=== PATIENT | male | born 1950 | race Two or more races ===

== ENCOUNTER 2017-03-25 09:00 | Outpatient (CLI) | payer MEDICAID, MEDICARE | END 2017-03-25 23:59 | disposition home or self-care (01) | LOC: WOU 09:00 → EDBD 09:00 → WOU 23:59 | PROVIDERS: ATTEND Podiatrist Foot & Ankle Surgery | DX: R60.0 Localized edema (principal); E11.65 Type 2 diabetes mellitus with hyperglycemia; E11.42 Type 2 diabetes mellitus with diabetic polyneuropathy; Z79.4 Long term (current) use of insulin; B35.1 Tinea unguium; R01.1 Cardiac murmur, unspecified | CPT/HCPCS: 82962-TC; G0463 ==

== ENCOUNTER 2017-03-26 08:54 | Outpatient (CLI) | payer MEDICARE ==
[2017-03-26 09:22] LABS: BASOPHILS % (AUTO) 0.7 % (0.0-2.0); EOSINOPHILS # (AUTO) 0.2 /CMM (0.0-0.7); EOSINOPHILS % (AUTO) 4.3 % (0.0-6.0); HEMATOCRIT 34 % (39-51); HEMOGLOBIN 10.8 g/dL (13.5-17.5); LYMPHOCYTES # (AUTO) 0.7 /CMM (0.8-4.8); LYMPHOCYTES % (AUTO) 20.4 % (20.0-44.0); MEAN CORPUSCULAR HEMOGLOBIN 24 PG (26.0-33.0); MEAN CORPUSCULAR HGB CONC 32 g/dl (31.0-36.0); MEAN CORPUSCULAR VOLUME 75 fL (80-96); MONOCYTES # (AUTO) 0.4 /CMM (0.1-1.30); MONOCYTES % (AUTO) 11.5 % (2.0-12.0); NEUTROPHILS # (AUTO) 2.2 /CMM (1.8-8.9); NEUTROPHILS % (AUTO) 63.1 % (43.0-81.0); PLATELET COUNT (AUTO) 90 /CMM (150-450); RED BLOOD CELL COUNT(AUTO) 4.44 MIL/uL (4.5-6.0); WHITE BLOOD COUNT (AUTO) 3.6 K/uL (4.3-11.0)
[2017-03-26 09:37] LABS: ALBUMIN 2.6 g/dL (3.4-5.0); BILIRUBIN,TOTAL 0.7 mg/dL (0.2-1.0); CALCIUM, SERUM 7.8 mg/dL (8.5-10.1); CREATININE 0.6 mg/dL (0.6-1.3); POTASSIUM 4.5 mmol/L (3.5-5.1); TOTAL PROTEIN, SERUM 5.8 g/dL (6.4-8.2)
[2017-03-26 10:16] LABS: BAND % (MANUAL) 1 % (0.0-5.0); EOSINOPHILS % (MANUAL) 3 % (0-4); LYMPHOCYTES % (MANUAL) 21 % (16-48); MONOCYTES % (MANUAL) 5 % (0-11.0); NEUTROPHILS % (MANUAL) 70 (42-76); PLATELET ESTIMATE DECREASED
[2017-03-26 10:17] LABS: ANISOCYTOSIS 1+; HYPOCHROMASIA 1+
[2017-03-27] MEDS ORDERED: METF500T4 PO (13:24)
[2017-03-27] MEDS ORDERED: INSU100V7 SQ (13:24)
[2017-03-27] MEDS ORDERED: ASPI81TA2 PO (13:24)
[2017-03-27] MEDS ORDERED: LINA5TAB PO (13:24)
[2017-03-27] MEDS ORDERED: BENA40TA2 PO (13:24)
[2017-03-27] MEDS ORDERED: ATOR10TA PO (13:24)
== END 2017-03-26 23:59 | disposition home or self-care (01) ==
LOC: LAB 08:54
PROVIDERS: ATTEND Podiatrist Foot & Ankle Surgery
DX: R60.0 Localized edema (principal)
CPT/HCPCS: 36415; 80053-TC; 85025-TC; 85652-TC

== ENCOUNTER 2017-03-27 08:57 | Inpatient (IN) | payer MEDICARE, MEDICAID ==
[~2017-03-27] VITALS: Ht 175.3 cm; Wt 68.5 kg
--- NOTE | 2017-03-27 09:15 | NUR ---
PT SELF PRESENTS TO ED: BLOOD IN VOMIT X 3 AND STOOL SINCE AM. COMPLAINS OF N/V. AT AND TESTED PT FOR OCCULT BLOOD- POSITVE. IV ACCESS STARTED. BLOOD DRAWN FOR LABS. VSS. SAFETY AND COMFORT MEASURES PROVIDED. WILL MONITOR.
--- NOTE | 2017-03-27 09:30 | NUR ---
PT MEDICATED ORDERED.
[2017-03-27] MEDS ORDERED: PANTOPRAZOLE 40 MG VIAL ONE (09:31)
[2017-03-27] MEDS ORDERED: IV NS 0.9% 1,000 ML ONE (09:32)
[2017-03-27] MEDS ORDERED: IV SET PRIMARY PUMP SET 1 EA INFUS.SET MC ONE ×2 (09:32→17:01)
[2017-03-27 09:42] LABS: BASOPHILS % (AUTO) 0.7 % (0.0-2.0); EOSINOPHILS # (AUTO) 0.1 /CMM (0.0-0.7); EOSINOPHILS % (AUTO) 2.3 % (0.0-6.0); HEMATOCRIT 31 % (39-51); HEMOGLOBIN 10.1 g/dL (13.5-17.5); LYMPHOCYTES # (AUTO) 0.8 /CMM (0.8-4.8); MEAN CORPUSCULAR HEMOGLOBIN 25 PG (26.0-33.0); MEAN CORPUSCULAR HGB CONC 32 g/dl (31.0-36.0); MEAN CORPUSCULAR VOLUME 76 fL (80-96); MONOCYTES # (AUTO) 0.6 /CMM (0.1-1.30); MONOCYTES % (AUTO) 11.2 % (2.0-12.0); NEUTROPHILS # (AUTO) 3.5 /CMM (1.8-8.9); NEUTROPHILS % (AUTO) 69.8 % (43.0-81.0); PLATELET COUNT (AUTO) 103 /CMM (150-450); RDW COEFFICIENT OF VARIATION 16.7 (11.5-15.0)
[2017-03-27 09:53] LABS: CALCIUM, SERUM 7.8 mg/dL (8.5-10.1); CARBON DIOXIDE 27 mmol/L (21-32); CHLORIDE 109 mmol/L (98-107); CREATININE 0.7 mg/dL (0.6-1.3); GFR 113 mL/min (>60); GLUCOSE 155 mg/dL (74-106); POTASSIUM 4.6 mmol/L (3.5-5.1); SODIUM SERUM 140 mmol/L (136-145); UREA NITROGEN, BLOOD 27 mg/dL (7-18)
[2017-03-27 09:57] LABS: INR 1.09 (0.87-1.13); PROTHROMBIN TIME 11.3 SECS (9.5-12.7)
[2017-03-27 09:59] LABS: ALANINE AMINOTRANSFERASE 18 U/L (12-78); ALBUMIN 2.5 g/dL (3.4-5.0); ALKALINE PHOSPHATASE 74 U/L (46-116); ASPARTATE AMINOTRANSFERASE 19 U/L (15-37); BILIRUBIN,DIRECT 0.2 mg/dL (0.0-0.2); BILIRUBIN,TOTAL 0.7 mg/dL (0.2-1.0); LIPASE 98 U/L (73-393); TOTAL PROTEIN, SERUM 5.7 g/dL (6.4-8.2)
[2017-03-27] MEDS ORDERED: PANTOPRAZOLE 40 MG VIAL IV ONE (10:00)
[2017-03-27] MEDS ORDERED: IV NS 0.9% 1,000 ML BAG IV ONE (10:00)
[2017-03-27 10:01] LABS: TROPONIN I < 0.017 ng/mL (0.00-0.056)
--- NOTE | 2017-03-27 11:00 | NUR ---
Patient is resting comfortably in bed with eyes closed. Easily aroused. VSS
--- NOTE | 2017-03-27 12:31 | NUR ---
EPIC PAGED, CARAMEL CANDY MAKER HELPER
[2017-03-27] MEDS ORDERED: ONDANSETRON HCL/PF 4 MG/2 ML VIAL ONE (12:49)
[2017-03-27] MEDS ORDERED: ONDANSETRON HCL/PF 4 MG/2 ML VIAL IV ONE (13:00)
[2017-03-27] MEDS ORDERED: BENA40TA2 PO (13:24)
[2017-03-27] MEDS ORDERED: LINA5TAB PO (13:24)
[2017-03-27] MEDS ORDERED: ASPI81TA2 PO (13:24)
[2017-03-27] MEDS ORDERED: INSU100V7 SQ (13:24)
[2017-03-27] MEDS ORDERED: METF500T4 PO (13:24)
[2017-03-27] MEDS ORDERED: ATOR10TA PO (13:24)
[2017-03-27 13:30] VITALS: BP 132/74
--- NOTE | 2017-03-27 13:30 | NUR ---
RN ADMITTING NOTES: Rec'd report from Matt DIAZ (ER dept). Pt admitted on Tele unit room 119/1 via gurney accompanied by ER staff & . Pt not in any distress, ambulatory, A/O x3-4, Citizen Of [place] speaking, able to understand some Norwegian. Pt on room air, saturating at 95%. Skin assessment done, intact. Initial VS taken & recorded. Pt and oriented on room. Belonging list done c/o Kalli MANAGER RN. Pt has R AC G20, SL, flushed, patent & intact w/ no signs of infection/ infiltration. Dr. Faustin made aware of pt's admission w/ orders & carried out. Call light placed w/in reach. Instructed to call RN/MANAGER RN if needs help/assistance, pt verbalized understanding. Bed kept low & in locked position. Will continue to monitor.
[2017-03-27 16:00] VITALS: BP 120/73
[2017-03-27] MEDS ORDERED: Z GUARD REMEDY 2 OZ OINT TP PRN (16:00)
[2017-03-27] MEDS ORDERED: MAGNESIUM HYDROXIDE 30 ML UDC PO PRN (16:00)
[2017-03-27] MEDS ORDERED: DEXTROSE 50%-WATER 50 ML DISP.SYRIN IV PRN (16:00)
[2017-03-27] MEDS ORDERED: MAG HYDROX/AL HYDROX/SIMETH 30 ML UDC PO PRN (16:00)
[2017-03-27] MEDS ORDERED: ACETAMINOPHEN 325 MG TABLET PO PRN (16:00)
[2017-03-27] MEDS ORDERED: ZOLPIDEM TARTRATE 5 MG TABLET PO PRN (16:00)
[2017-03-27] MEDS: IV D5W 1,000 ML IV PRN (17:28)
[2017-03-27] MEDS: BLOOD SUGAR DIAGNOSTIC 1 EACH STRIP IN SCH ×2 (17:28→21:24)
[2017-03-27] MEDS: INSULIN REGULAR, HUMAN 100 UNIT/ML 3 ML VIAL SQ PRN (17:37)
--- NOTE | 2017-03-27 19:15 | NUR ---
RN INITIAL NOTES RECEIVED PATIENT IN BED, AWAKE AND ALERT AND ORIENTED. PATIENT ON ROOM AIR, NO RESPIRATORY DISTRESS. SR ON TELE WITH HR OF 98. PATIENT DENIES ANY PAIN AND DISCOMFORT. NO DISTRESS. PATIENT DENIES ANY N/V. PATIENT REPORTS NO EPISODE OF MELENA SINCE PRIOR TO ADMITTANCE TO ER. WILL MONITOR. R AC G20, FLUSHED AND PATENT, IVF OF D5W INFUSING WELL AT 75CC/HR. PATIENT'S NEEDS ANTICIPATED AND MET. SAFETY AND COMFORT ENSURED. BED IN LOW AND LOCKED POSITION. CALL LIGHT IN REACH. PATIENT'S DAUGHTER AT BEDSIDE. WILL MONITOR.
--- NOTE | 2017-03-27 19:55 | NUR ---
RN CLOSING NOTES: No acute changes noted w/in shift. Pt resting comfortably, no c/o pain, no bleeding noted. Needs attended. Call light placed w/in reach. Bed kept low & in locked position. Endorsed to PM RN for IZABELA.
[2017-03-27 20:00] VITALS: BP 132/75
[2017-03-27] MEDS: INSULIN DETEMIR 100 UNIT/ML CARTRIDGE SQ SCH (21:25)
[2017-03-28] VITALS (7 sets, daily range): BP systolic 97–124; BP diastolic 57–72
--- NOTE | 2017-03-28 06:49 | NUR ---
RN CLOSING NOTES PATIENT WITH NO ACUTE DISTRESS OBSERVED OVERNIGHT. PATIENT WITH NO EPISODE OF MELENA, NO N/V. IVF INFUSING WELL ORDERED ON PATIENT'S R AC, NO SIGNS OF INFILTRATION. PATIENT'S NEEDS ANTICIPATED AND MET. SAFETY AND COMFORT ENSURED. BED IN LOW AND LOCKED POSITION. CALL LIGHT IN REACH. WILL ENDORSE ACCORDINGLY FOR CONTINUITY OF CARE.
[2017-03-28] MEDS: PANTOPRAZOLE 40 MG TABLET.DR PO SCH (06:55)
[2017-03-28] MEDS: BLOOD SUGAR DIAGNOSTIC 1 EACH STRIP IN SCH ×4 (06:55→21:13)
[2017-03-28] MEDS: IV D5W 1,000 ML IV PRN ×2 (06:55→23:44)
[2017-03-28] MEDS: INSULIN REGULAR, HUMAN 100 UNIT/ML 3 ML VIAL SQ PRN ×3 (06:56→21:21)
--- NOTE | 2017-03-28 07:00 | NUR ---
RN NOTES RECEIVED PATIENT ON BED, A/Ox3. RESPIRATION EVEN AND UNLABORED, SR ON TELE WITH HR IN 70'S. NO SOB NOTED, PATIENT DENIES ANY PAIN AND DISCOMFORT. R AC G20 SITE CDI, IVF OF D5W INFUSING WELL AT 75CC/HR. SR UP x2, CALL LIGHT WITHIN EASY REACH , SAFETY AND COMFORT ENSURED. BED IN LOW AND LOCKED POSITION. SUPPORTIVE FAMILY AT THE BEDSIDE, WILL CONTINUE TO MONITOR PT CLOSELY AND NOTIFY MD FOR ANY SIGNIFICANT CHANGES .
[2017-03-28 07:35] LABS: BASOPHILS % (AUTO) 0.5 % (0.0-2.0); EOSINOPHILS # (AUTO) 0.2 /CMM (0.0-0.7); EOSINOPHILS % (AUTO) 5.3 % (0.0-6.0); HEMATOCRIT 25 % (39-51); HEMOGLOBIN 8.1 g/dL (13.5-17.5); LYMPHOCYTES # (AUTO) 0.8 /CMM (0.8-4.8); LYMPHOCYTES % (AUTO) 21.7 % (20.0-44.0); MEAN CORPUSCULAR HEMOGLOBIN 25 PG (26.0-33.0); MEAN CORPUSCULAR HGB CONC 33 g/dl (31.0-36.0); MEAN CORPUSCULAR VOLUME 76 fL (80-96); MONOCYTES # (AUTO) 0.4 /CMM (0.1-1.30); NEUTROPHILS # (AUTO) 2.3 /CMM (1.8-8.9); NEUTROPHILS % (AUTO) 61.5 % (43.0-81.0); PLATELET COUNT (AUTO) 90 /CMM (150-450); RDW COEFFICIENT OF VARIATION 17.7 (11.5-15.0); RED BLOOD CELL COUNT(AUTO) 3.26 MIL/uL (4.5-6.0); WHITE BLOOD COUNT (AUTO) 3.8 K/uL (4.3-11.0)
[2017-03-28 07:45] LABS: CALCIUM, SERUM 7.3 mg/dL (8.5-10.1); CREATININE 0.8 mg/dL (0.6-1.3); MAGNESIUM 1.6 mg/dL (1.8-2.4); PHOSPHORUS 3.5 mg/dL (2.5-4.9); POTASSIUM 3.8 mmol/L (3.5-5.1)
[2017-03-28] MEDS: ATORVASTATIN 10 MG TABLET PO SCH (08:29)
[2017-03-28] MEDS: BENAZEPRIL HCL 20 MG TABLET PO SCH (08:30)
--- NOTE | 2017-03-28 12:00 | NUR ---
RN NOTES PT AT REST , NO DISTRESS NOTED, CONTINUE TO MONITOR .
[2017-03-28 12:53] LABS: ANISOCYTOSIS 1+; EOSINOPHILS % (MANUAL) 1 % (0-4); HYPOCHROMASIA 1+; LYMPHOCYTES % (MANUAL) 23 % (16-48); MONOCYTES % (MANUAL) 8 % (0-11.0); NEUTROPHILS % (MANUAL) 68 (42-76); PLATELET ESTIMATE DECREASED
[2017-03-28] MEDS ORDERED: SECONDARY IV SET 1 EA INFUS.SET MC ONE (12:59)
[2017-03-28] MEDS: Magnesium 1GM/D5W 100ML PREMIX 100 ML IV SCH ×2 (13:05→14:21)
--- NOTE | 2017-03-28 18:53 | NUR ---
RN NOTES NO ACTIVE BLEEDING NOTED AT THIS TIME ,VSS STABLE , D5 W AT 75CC/HR RUNNING VIA R AC IV SITE, NO SIGNIFICANT CHANGES NOTED ON THIS SHIFT .
--- NOTE | 2017-03-28 19:30 | NUR ---
RN NOTES PT'S FAMILY WANTS TO SEE DR SHARMA . DR OLIVERA PAGED AND NOTIFIED, NEW ORDER GIVEN .
[2017-03-28] MEDS: INSULIN DETEMIR 100 UNIT/ML CARTRIDGE SQ SCH (21:20)
[2017-03-29] VITALS (9 sets, daily range): BP systolic 93–141; BP diastolic 57–79
[2017-03-29] MEDS: BLOOD SUGAR DIAGNOSTIC 1 EACH STRIP IN SCH ×4 (06:12→21:26)
[2017-03-29 06:38] LABS: BASOPHILS % (AUTO) 0.7 % (0.0-2.0); EOSINOPHILS # (AUTO) 0.2 /CMM (0.0-0.7); HEMATOCRIT 24 % (39-51); HEMOGLOBIN 7.9 g/dL (13.5-17.5); LYMPHOCYTES # (AUTO) 0.8 /CMM (0.8-4.8); LYMPHOCYTES % (AUTO) 23.1 % (20.0-44.0); MEAN CORPUSCULAR HEMOGLOBIN 25 PG (26.0-33.0); MEAN CORPUSCULAR HGB CONC 32 g/dl (31.0-36.0); MEAN CORPUSCULAR VOLUME 76 fL (80-96); MONOCYTES # (AUTO) 0.4 /CMM (0.1-1.30); MONOCYTES % (AUTO) 12.9 % (2.0-12.0); NEUTROPHILS # (AUTO) 1.9 /CMM (1.8-8.9); NEUTROPHILS % (AUTO) 57.3 % (43.0-81.0); PLATELET COUNT (AUTO) 81 /CMM (150-450); RDW COEFFICIENT OF VARIATION 17.7 (11.5-15.0); RED BLOOD CELL COUNT(AUTO) 3.21 MIL/uL (4.5-6.0); WHITE BLOOD COUNT (AUTO) 3.4 K/uL (4.3-11.0)
[2017-03-29 06:46] LABS: INR 1.06 (0.87-1.13); PROTHROMBIN TIME 11.4 SECS (9.5-12.7)
--- NOTE | 2017-03-29 06:56 | NUR ---
PT KEPT NPO OVERNIGHT FOR EGD TODAY @ 1300 ,IV INFUSING D5W @75 CC. CONSENT SIGNED.NO BM ,NO NAUSEA,NO VOMITING .VSS,AFEBRILE,ALL NEEDS ATTENDED,SINUS RHYTHM ON MONITOR.
[2017-03-29 07:07] LABS: ALBUMIN 2.1 g/dL (3.4-5.0); BILIRUBIN,TOTAL 0.5 mg/dL (0.2-1.0); CALCIUM, SERUM 7.5 mg/dL (8.5-10.1); CREATININE 0.7 mg/dL (0.6-1.3); MAGNESIUM 1.6 mg/dL (1.8-2.4); PHOSPHORUS 4.2 mg/dL (2.5-4.9)
[2017-03-29 07:12] LABS: ANISOCYTOSIS 2+; BAND % (MANUAL) 2 % (0.0-5.0); EOSINOPHILS % (MANUAL) 6 % (0-4); HYPOCHROMASIA 1+; LYMPHOCYTES % (MANUAL) 27 % (16-48); MONOCYTES % (MANUAL) 15 % (0-11.0); NEUTROPHILS % (MANUAL) 50 (42-76); PLATELET ESTIMATE DECREASED
[2017-03-29 07:13] LABS: OVALOCYTES FEW
--- NOTE | 2017-03-29 07:20 | NUR ---
RN INITIAL NOTE RECEIVED PT FROM PM NURSE. PT A/O X4. TELE SR 80'S. PT ON RA NO C/O OF SOB SPO2 96%. IV RAC #20G DSW @75 ML/HR PATENT FLUSHED AND INTACT. PAIN 0/10. PT NPO WILL HAVE EGD THIS AFTERNOON. WILL CONTINUE TO MONITOR CLOSELY. ALL SAFETY MEASURES IN PLACE.
[2017-03-29] MEDS: PANTOPRAZOLE 40 MG TABLET.DR PO SCH (07:30)
[2017-03-29] MEDS: ATORVASTATIN 10 MG TABLET PO SCH (09:00)
[2017-03-29] MEDS: BENAZEPRIL HCL 20 MG TABLET PO SCH (09:00)
[2017-03-29] MEDS: Magnesium 1GM/D5W 100ML PREMIX 100 ML IV SCH ×2 (13:05→15:26)
--- NOTE | 2017-03-29 13:33 | NUR ---
RN NOTE PT TAKEN TO EGD IV DISCONNECTED. PT STABLE.
[2017-03-29] MEDS ORDERED: SIMETHICONE SUSP 40 MG/0.6 ML BOTTLE ONE (13:56)
[2017-03-29] MEDS ORDERED: OCTREOTIDE 1,250 MCG in IV NS 0.9% 247.5 ML IV PRN (14:30)
[2017-03-29] MEDS ORDERED: SECONDARY IV SET 1 EA INFUS.SET MC ONE (14:40)
[2017-03-29] MEDS ORDERED: IV SET PRIMARY PUMP SET 1 EA INFUS.SET MC ONE (14:40)
--- NOTE | 2017-03-29 14:40 | NUR ---
RN NOTE PT RETURNED FROM EGD. PT NAUSEATED AND VOMITING. ZOFRAN GIVEN B.P 147/73 R18 T 97.7 SPO2 96% ON RA NO C/O OF SOB. PT C/O ABD PAIN. IV SANDOSTATIN STARTED STAT 10ML/HR CALL PHARMACY TO VERIFY DOSAGE.
[2017-03-29] MEDS ORDERED: IV NS 0.9% 250 ML IV ONE (14:41)
[2017-03-29] MEDS: ONDANSETRON HCL/PF 4 MG/2 ML VIAL IVP PRN ×2 (14:47→22:40)
[2017-03-29] MEDS: OCTREOTIDE 1,250 MCG in IV NS 0.9% 247.5 ML IV PRN ×3 (14:48→16:19)
[2017-03-29] MEDS ORDERED: ANESTHESIA TRAY IN PYXIS 1 EA TRAY MC ONE (15:29)
[2017-03-29 16:00] LABS: BASOPHILS % (AUTO) 0.3 % (0.0-2.0); EOSINOPHILS # (AUTO) 0.3 /CMM (0.0-0.7); EOSINOPHILS % (AUTO) 4.4 % (0.0-6.0); HEMATOCRIT 28 % (39-51); LYMPHOCYTES # (AUTO) 1.1 /CMM (0.8-4.8); LYMPHOCYTES % (AUTO) 18.3 % (20.0-44.0); MEAN CORPUSCULAR HEMOGLOBIN 24 PG (26.0-33.0); MEAN CORPUSCULAR HGB CONC 32 g/dl (31.0-36.0); MEAN CORPUSCULAR VOLUME 75 fL (80-96); MONOCYTES # (AUTO) 0.7 /CMM (0.1-1.30); MONOCYTES % (AUTO) 11.6 % (2.0-12.0); NEUTROPHILS # (AUTO) 3.9 /CMM (1.8-8.9); NEUTROPHILS % (AUTO) 65.4 % (43.0-81.0); PLATELET COUNT (AUTO) 105 /CMM (150-450); RDW COEFFICIENT OF VARIATION 17.9 (11.5-15.0); RED BLOOD CELL COUNT(AUTO) 3.73 MIL/uL (4.5-6.0)
--- NOTE | 2017-03-29 18:30 | NUR ---
RN NOTE CALLED DR. ARIAS ORDERED CLEAR LIQUID DIET, REPORTED HGB 7.9 NOW 9.0 ORDER CBC IN 4 HOURS.
--- NOTE | 2017-03-29 18:30 | NUR ---
LOAN MANAGER NOTE PT DC HOME WITH SON VIA PRIVATE CAR.IV AND NAME BAND REMOVED. PT STABLE. ALL DC INSTRUCTIONS GIVEN TO SON. ALL QUESTIONS ANSWERED BELONGING LIST SIGNED PHOTOS TAKEN AND PUT IN CHART. PT CLEAN AND DRY. ALL MEDICATIONS CARRIED OUT. Addendum: 03/29/17 at 2017 by STEWART DENNY RN DC NOTE NOT FOR PT ABOVE.
--- NOTE | 2017-03-29 19:30 | NUR ---
RN INITIAL NOTES PT IS IN BED, FAMILY IN BEDSIDE, A/O X3, GEORGIAN SPEAKING, ALL LUNG NI CTA, NO COMPLAINTS OF N/V, PAIN OF 8 AROUND THE ABDOMEN AREA, WILL PROVIDE PAINS ORDER. ON RA, TOLERATING IT WELL, L FOREARM IV SITE FLUSHED AND PATENT. SIDERAILS UP BED LOCKED AND IN LOWEST POSITION, CALL LIGHTS WITHIN REACH.
--- NOTE | 2017-03-29 19:59 | NUR ---
ALL [facility] MEDS CLEARED FOR PT SAFETY
[2017-03-29] MEDS: HYDROCODONE/APAP 5/325MG 1 EACH TABLET PO PRN (20:09)
--- NOTE | 2017-03-29 20:10 | NUR ---
RN CLOSING NOTE PT A/O X4. TELE SR 80'S. PT ON RA NO C/O OF SOB SPO2 96%. IV L WRIST#20G SANDOSTATIN @ 10ML/HR PATENT FLUSHED AND INTACT. PT HAD EGD DONE PT STABLE. REPORT GIVEN TO PM NURSE FOR IZABELA. ALL MEDICATIONS GIVEN IN PM. ALL SAFETY MEASURES IN PLACE. V/S WNL FOR PT.
[2017-03-29] MEDS: INSULIN DETEMIR 100 UNIT/ML CARTRIDGE SQ SCH (21:36)
[2017-03-29] MEDS: INSULIN REGULAR, HUMAN 100 UNIT/ML 3 ML VIAL SQ PRN (23:29)
[2017-03-30] VITALS (7 sets, daily range): BP systolic 101–136; BP diastolic 59–82
[2017-03-30] MEDS: ONDANSETRON HCL/PF 4 MG/2 ML VIAL IVP PRN ×2 (06:37→16:29)
[2017-03-30] MEDS: BLOOD SUGAR DIAGNOSTIC 1 EACH STRIP IN SCH ×4 (06:38→23:07)
[2017-03-30 07:14] LABS: BASOPHILS % (AUTO) 0.3 % (0.0-2.0); EOSINOPHILS # (AUTO) 0.1 /CMM (0.0-0.7); HEMATOCRIT 28 % (39-51); HEMOGLOBIN 8.9 g/dL (13.5-17.5); LYMPHOCYTES # (AUTO) 0.7 /CMM (0.8-4.8); MEAN CORPUSCULAR HEMOGLOBIN 24 PG (26.0-33.0); MEAN CORPUSCULAR HGB CONC 32 g/dl (31.0-36.0); MEAN CORPUSCULAR VOLUME 76 fL (80-96); MONOCYTES # (AUTO) 0.4 /CMM (0.1-1.30); MONOCYTES % (AUTO) 7.4 % (2.0-12.0); NEUTROPHILS # (AUTO) 4.8 /CMM (1.8-8.9); NEUTROPHILS % (AUTO) 79.3 % (43.0-81.0); PLATELET COUNT (AUTO) 97 /CMM (150-450); RDW COEFFICIENT OF VARIATION 17.7 (11.5-15.0)
--- NOTE | 2017-03-30 07:27 | NUR ---
INTERNAL AUDIT MANAGER INITIAL NOTES NO SIGNIFICANT CHANGES OVERNIGHT, TOLERATED ROOM AIR AT SAT 95%, PT HAD EPISODES 0F NAUSEA/VOMITING X3, STILL ON CLEAR LIQUID DIET, ASPIRATION PRECAUTION, AND ZOFRAN GIVEN ORDERED. NO ACTIVE BLEEDING NOTED, AM CBC LABS ORDERED. IV SITES IS PATENT, NO S/SX OF INFECTION/INFILTRATION NOTED. BED IS LOCKED AND IN LOWEST POSITION, CALL LIGHT WITHIN REACH. ENDORSED TO AM NURSE FOR CONTINUATION OF CARE. Addendum: 03/30/17 at 2242 by MAGDALENA STEINER RN INTERNAL AUDIT MANAGER CLOSING NOTES
[2017-03-30 07:29] LABS: CALCIUM, SERUM 7.5 mg/dL (8.5-10.1); CREATININE 0.7 mg/dL (0.6-1.3); MAGNESIUM 1.8 mg/dL (1.8-2.4); POTASSIUM 4.3 mmol/L (3.5-5.1)
--- NOTE | 2017-03-30 07:30 | NUR ---
RN INITIAL NOTE RECEIVED PT FROM MAGDALENA PM NURSE. PT A/O X4 TELUGU SPEAKING. PT ON RA NO C/O OF SOB IV L HAND#20G PATENT FLUSHED AND INTACT. PAIN 0/10 SOME ABD DISCOMFORT BUT NO PAIN. NAUSEATED EARLIER THIS MORNING ZOFRAN GIVEN @ 0700. WILL CONTINUE TO MONITOR CLOSELY. ALL SAFETY MEASURES IN PLACE.
[2017-03-30] MEDS: BENAZEPRIL HCL 20 MG TABLET PO SCH (08:13)
[2017-03-30] MEDS: ATORVASTATIN 10 MG TABLET PO SCH (08:13)
[2017-03-30] MEDS: PANTOPRAZOLE 40 MG TABLET.DR PO SCH (08:14)
[2017-03-30 08:31] LABS: ANISOCYTOSIS 1+; BAND % (MANUAL) 2 % (0.0-5.0); EOSINOPHILS % (MANUAL) 3 % (0-4); HYPOCHROMASIA 1+; LYMPHOCYTES % (MANUAL) 8 % (16-48); MONOCYTES % (MANUAL) 1 % (0-11.0); NEUTROPHILS % (MANUAL) 86 (42-76); PLATELET ESTIMATE DECREASED
[2017-03-30] MEDS: INSULIN REGULAR, HUMAN 100 UNIT/ML 3 ML VIAL SQ PRN (12:30)
--- NOTE | 2017-03-30 16:55 | NUR ---
RN NOTE REPORT GIVEN TO HARDEEP DIAZ FOR IZABELA. PT A/O X4 JAMAICAN SPEAKING. PT ON RA NO C/O OF SOB IV L HAND#20G PATENT FLUSHED AND INTACT SANDOSTATIN CONTINUALLY RUNNING 10ML/HR. PAIN 0/10 SOME ABD , VOMITED X1 ZOFRAN GIEN. ALL SAFETY MEASURES IN PLACE.
--- NOTE | 2017-03-30 17:00 | NUR ---
MS RN NOTES RECEIVED PT FROM STEWART IN STABLE CONDITION. A/O X4. NO COMPLAINTS OF NAUSEA OR VOMITING AT THIS TIME. WILL CONTINUE TO MONITOR.
[2017-03-30] MEDS: OCTREOTIDE 1,250 MCG in IV NS 0.9% 247.5 ML IV PRN (17:42)
--- NOTE | 2017-03-30 18:55 | NUR ---
MS RN CLOSING NOTES PT. IN STABLE CONDITION, RESTING IN BED. A/O X4 NORWEGIAN SPEAKING. NO COMPLAINTS OF NAUSEA AT THIS TIME. IV ON LEFT HAND 20G PATENT PATENT AND INTACT INFUSING SANDOSTATIN @ 10ML/HR. PT. TOLERATING INFUSION WELL. ALL NEEDS MET AND ORDERS CARRIED OUT ACCORDINGLY. ALL SAFETY MEASURES IN PLACE. BED IN LOW LOCKED POSITION, SIDE RAILS UP X2, CALL LIGHT WITHIN REACH. WILL ENDORSE CONSTANTIN NIGHTSHIFT NURSE FOR IZABELA
--- NOTE | 2017-03-30 19:35 | NUR ---
RN INITIAL NOTES PT IS IN BED RESTING COMFORTABLY, A/O X3 CROATIAN SPEAKING. NO SIGN OF ACUTE DISTRESS NOTED, NO COMPLAINS OF N/V, DENIES PAIN, AT BEDSIDE. ON ROOM AIR, TOLERATING IT WELL, ON IV DRIP AND IV SITE NO S/SX OF INFECTION. SIDERAILS UP, BED LOCKED AND IN LOWEST POSITION, CALL LIGHT WITHIN REACH.
[2017-03-30] MEDS: INSULIN DETEMIR 100 UNIT/ML CARTRIDGE SQ SCH (23:14)
[2017-03-30] MEDS: HYDROCODONE/APAP 5/325MG 1 EACH TABLET PO PRN (23:15)
[2017-03-31] VITALS: BP 117/60
[2017-03-31 04:00] VITALS: BP 117/60
[2017-03-31 04:19] VITALS: BP 100/72
[2017-03-31] MEDS: BLOOD SUGAR DIAGNOSTIC 1 EACH STRIP IN SCH ×2 (06:39→12:08)
[2017-03-31 06:45] LABS: BASOPHILS % (AUTO) 0.4 % (0.0-2.0); EOSINOPHILS # (AUTO) 0.2 /CMM (0.0-0.7); EOSINOPHILS % (AUTO) 4.3 % (0.0-6.0); HEMATOCRIT 26 % (39-51); HEMOGLOBIN 8.5 g/dL (13.5-17.5); LYMPHOCYTES # (AUTO) 1.6 /CMM (0.8-4.8); MEAN CORPUSCULAR HEMOGLOBIN 25 PG (26.0-33.0); MEAN CORPUSCULAR HGB CONC 32 g/dl (31.0-36.0); MEAN CORPUSCULAR VOLUME 76 fL (80-96); MONOCYTES # (AUTO) 0.8 /CMM (0.1-1.30); MONOCYTES % (AUTO) 13.8 % (2.0-12.0); NEUTROPHILS % (AUTO) 52.5 % (43.0-81.0); PLATELET COUNT (AUTO) 103 /CMM (150-450); RDW COEFFICIENT OF VARIATION 17.9 (11.5-15.0); RED BLOOD CELL COUNT(AUTO) 3.46 MIL/uL (4.5-6.0); WHITE BLOOD COUNT (AUTO) 5.6 K/uL (4.3-11.0)
[2017-03-31 06:56] LABS: CALCIUM, SERUM 7.2 mg/dL (8.5-10.1); CREATININE 0.7 mg/dL (0.6-1.3); MAGNESIUM 1.7 mg/dL (1.8-2.4)
--- NOTE | 2017-03-31 07:15 | NUR ---
PHARMACY SALESPERSON CLOSING NOTES NO SIGNIFICANT CHANGES OVERNIGHT, ON ROOM AIR TOLERATING IT WELL, PT HAD EPISODES 0F N/V, STILL ON NA RESTRICTION DIET, ASPIRATION PRECAUTION, DENIES PAIN. NO ACTIVE BLEEDING NOTED, IV SITES IS PATENT, SANDOSTATIN IV DRIP RUNNING, NO S/SX OF INFECTION/INFILTRATION NOTED. BED IS LOCKED AND IN LOWEST POSITION, CALL LIGHT WITHIN REACH. ENDORSED TO AM NURSE FOR CONTINUATION OF CARE.
--- NOTE | 2017-03-31 07:18 | NUR ---
MS/RN AM NOTES RECEIVED PATIENT IN BED, AWAKE, ALERT, NO SOB, NO DISTRESS, ON RA, TOLERATING WELL, O2 SATURATION 93%, TOLERATING WELL. DENIES PAIN. IV LINE INTACT ON LEFT HAND WITH SANDOSTATIN DRIP 10 CC/H. BED IN LOW POSITION, 2 SR UP FOR SAFETY. WITH CALL LIGHT WITHIN EASY REACH. WILL CONTINUE TO MONITOR ACCORDINGLY.
[2017-03-31 08:00] VITALS: BP 120/70
[2017-03-31] MEDS: PANTOPRAZOLE 40 MG TABLET.DR PO SCH (09:15)
[2017-03-31] MEDS: BENAZEPRIL HCL 20 MG TABLET PO SCH (09:16)
[2017-03-31] MEDS: ATORVASTATIN 10 MG TABLET PO SCH (09:16)
[2017-03-31] MEDS ORDERED: SECONDARY IV SET 1 EA INFUS.SET MC ONE (11:35)
[2017-03-31 12:00] VITALS: BP 124/73
[2017-03-31] MEDS ORDERED: IV SET PRIMARY PUMP SET 1 EA INFUS.SET MC ONE (12:00)
[2017-03-31] MEDS: Magnesium 1GM/D5W 100ML PREMIX 100 ML IV SCH ×2 (12:01→13:25)
[2017-03-31] MEDS: INSULIN REGULAR, HUMAN 100 UNIT/ML 3 ML VIAL SQ PRN (12:13)
--- NOTE | 2017-03-31 15:00 | NUR ---
RN NOTES DR. ALVARADO VISITED, EXAMINED PATIENT, WITH ORDER TO D/C HOME. EXPLAINED POST DISCHARGE CARE TO THE PATIENT, WITH TOTAL RESTRICTION OF ALCOHOL CONSUMPTION, AND IMPORTANCE OF PROTONIX USE BID TO PREVENT STOMACH ULCERS. INFORMATION DELIVERED TO THE PATIENT THROUGH STATIONARY ENGINEER REFRIGERATION NURSE, PATIENT VERBALIZED UNDERSTANDING, ANSWERED TO ALL QUESTIONS. INSTRUCTED TO F/U WITH DR. SHARMA WITHIN A WEEK FOR F/U CARE, ADDRESS AND PHONE NUMBER GIVEN.
--- NOTE | 2017-03-31 16:45 | NUR ---
MS/APPLICATIONS PROGRAMMER ANALYST NOTES PATIENT DISCHARGED HOME WITH SON AND IN STABLE CONDITION. VITAL SIGNS BP-103/65, P-75, R-18, T-98.3, 02-97% RA. DISCHARGE CARE INSTRUCTION PROVIDED, ENCOURAGED TO F/U WITH PRIMARY PHYSICIAN AND DR. SHARMA WITHIN A WEEK, FOR FOLLOW UP, VERBALIZED UNDERSTANDING. LEFT WITH ALL BELONGINGS. VALUABLE SENT HOME BY PATIENT WITH HIS FAMILY COUPLE DAYS AGO. WALKED OUT FROM THE HOSPITAL WITH SWEAT BAND SEWER HELP AND FAMILY IN STABLE CONDITION
== END 2017-03-31 16:47 | disposition home or self-care (01) | DRG 378 ==
LOC: ER 08:59 → TELE1 12:58 → MEDSG1 03-30 16:57
PROVIDERS: ADMIT Internal Medicine; ATTEND Internal Medicine
PROC: 06L34CZ Occlusion of Esophageal Vein with Extraluminal Device, Percutaneous Endoscopic Approach (ICD-10-PCS; principal; 2017-03-29 14:30)
DX: K92.2 Gastrointestinal hemorrhage, unspecified (principal); E44.0 Moderate protein-calorie malnutrition; D62 Acute posthemorrhagic anemia; K76.6 Portal hypertension; J98.11 Atelectasis; E78.5 Hyperlipidemia, unspecified; K92.0 Hematemesis; I11.9 Hypertensive heart disease without heart failure; E11.65 Type 2 diabetes mellitus with hyperglycemia; Z79.84 Long term (current) use of oral hypoglycemic drugs; K21.9 Gastro-esophageal reflux disease without esophagitis; Z87.891 Personal history of nicotine dependence; D50.9 Iron deficiency anemia, unspecified; Z68.22 Body mass index [BMI] 22.0-22.9, adult; I85.01 Esophageal varices with bleeding; F10.20 Alcohol dependence, uncomplicated; R16.2 Hepatomegaly with splenomegaly, not elsewhere classified; E83.42 Hypomagnesemia
CPT/HCPCS: 36415; 71010-TC; 80048-TC; 80053-TC; 80061-TC; 80076-TC; 82378; 82728-TC; 82962-TC; 83540-TC; 83690-TC; 83735-TC; 84100-TC; 84484-TC; 85025-TC; 85610-TC; 85730-TC; 86850-TC; 87081-TC; 93307-TC; 93976-TC; 94799-TC; A4606; C9113; J1815; J2354; J2405; J2704; J3475; J7030; J7050; J7070; Z7610

== ENCOUNTER 2017-04-08 08:40 | Outpatient (CLI) | payer MEDICARE, MEDICAID ==
[~2017-04-08 08:40] MED LIST: ASPI81TA2 PO; ATOR10TA PO; BENA40TA2 PO; INSU100V7 SQ; LINA5TAB PO; METF500T4 PO
== END 2017-04-08 23:59 | disposition home or self-care (01) ==
LOC: WOU 08:40
PROVIDERS: ATTEND Podiatrist Foot & Ankle Surgery
DX: I70.203 Unspecified atherosclerosis of native arteries of extremities, bilateral legs (principal); R60.0 Localized edema
CPT/HCPCS: 93970-TC

== ENCOUNTER 2017-04-09 08:24 | Outpatient (CLI) | payer MEDICARE, MEDICAID | END 2017-04-09 23:59 | disposition home or self-care (01) | LOC: WOU 08:24 | PROVIDERS: ATTEND Podiatrist Foot & Ankle Surgery | DX: E11.51 Type 2 diabetes mellitus with diabetic peripheral angiopathy without gangrene (principal); E11.65 Type 2 diabetes mellitus with hyperglycemia; Z79.4 Long term (current) use of insulin; B35.1 Tinea unguium | CPT/HCPCS: G0463 ==

== ENCOUNTER 2017-10-07 13:12 | Outpatient (CLI) | payer MEDICARE, OTHER | END 2017-10-07 23:59 | disposition home or self-care (01) | LOC: WOU 13:12 | PROVIDERS: ATTEND Podiatrist Foot & Ankle Surgery | DX: I70.203 Unspecified atherosclerosis of native arteries of extremities, bilateral legs (principal); I87.2 Venous insufficiency (chronic) (peripheral); R60.0 Localized edema ==

== ENCOUNTER 2017-10-08 07:50 | Outpatient (CLI) | payer MEDICARE, OTHER | END 2017-10-08 23:59 | disposition home or self-care (01) | LOC: WOU 07:50 | PROVIDERS: ATTEND Podiatrist Foot & Ankle Surgery | DX: E11.51 Type 2 diabetes mellitus with diabetic peripheral angiopathy without gangrene (principal); I10 Essential (primary) hypertension; L60.0 Ingrowing nail; R60.0 Localized edema; E11.65 Type 2 diabetes mellitus with hyperglycemia; Z79.4 Long term (current) use of insulin | CPT/HCPCS: 11730 ==

== ENCOUNTER 2017-10-09 08:03 | Outpatient (CLI) | payer MEDICARE, MEDICAID ==
[2017-10-09 09:43] LABS: BASOPHILS % (AUTO) 0.6 % (0.0-2.0); EOSINOPHILS # (AUTO) 0.1 /CMM (0.0-0.7); EOSINOPHILS % (AUTO) 3.6 % (0.0-6.0); HEMATOCRIT 43 % (39-51); HEMOGLOBIN 14.4 g/dL (13.5-17.5); LYMPHOCYTES # (AUTO) 0.9 /CMM (0.8-4.8); LYMPHOCYTES % (AUTO) 25.3 % (20.0-44.0); MEAN CORPUSCULAR HEMOGLOBIN 29 PG (26.0-33.0); MEAN CORPUSCULAR HGB CONC 33 g/dl (31.0-36.0); MEAN CORPUSCULAR VOLUME 86 fL (80-96); MONOCYTES # (AUTO) 0.5 /CMM (0.1-1.30); MONOCYTES % (AUTO) 12.1 % (2.0-12.0); NEUTROPHILS # (AUTO) 2.2 /CMM (1.8-8.9); NEUTROPHILS % (AUTO) 58.4 % (43.0-81.0); PLATELET COUNT (AUTO) 72 /CMM (150-450); RED BLOOD CELL COUNT(AUTO) 5.05 MIL/uL (4.5-6.0); WHITE BLOOD COUNT (AUTO) 3.8 K/uL (4.3-11.0)
[2017-10-09 10:01] LABS: ALBUMIN 3.2 g/dL (3.4-5.0); BILIRUBIN,DIRECT 0.2 mg/dL (0.0-0.2); BILIRUBIN,TOTAL 1.2 mg/dL (0.2-1.0); TOTAL PROTEIN, SERUM 7.5 g/dL (6.4-8.2)
[2017-10-09 13:06] LABS: EOSINOPHILS % (MANUAL) 2 % (0-4); LYMPHOCYTES % (MANUAL) 11 % (16-48); MONOCYTES % (MANUAL) 3 % (0-11.0); NEUTROPHILS % (MANUAL) 84 (42-76)
== END 2017-10-09 23:59 | disposition home or self-care (01) ==
LOC: LAB 08:03
PROVIDERS: ATTEND Podiatrist Foot & Ankle Surgery
DX: B35.1 Tinea unguium (principal)
CPT/HCPCS: 36415; 80076-TC; 85025-TC

== ENCOUNTER 2018-11-13 08:12 | Outpatient (CLI) | payer MEDICARE, MEDICAID ==
[~2018-11-13 08:12] MED LIST changes: +ASPI-1169 PO; -ASPI81TA2 PO; -BENA40TA2 PO; +BENA40TA8 PO; +METF-440 PO; -METF500T4 PO
== END 2018-11-13 23:59 | disposition home health service (06) ==
LOC: WOU 08:12
PROVIDERS: ATTEND Podiatrist Foot & Ankle Surgery
DX: L60.0 Ingrowing nail (principal); E11.65 Type 2 diabetes mellitus with hyperglycemia; B35.1 Tinea unguium; R60.0 Localized edema; Z79.4 Long term (current) use of insulin
CPT/HCPCS: 11730; A6402; Z7610

== ENCOUNTER 2018-12-04 11:20 | Outpatient (CLI) | payer MEDICARE, MEDICAID | END 2018-12-04 23:19 | disposition home health service (06) | LOC: WOU 11:20 | PROVIDERS: ATTEND Podiatrist Foot & Ankle Surgery | DX: E11.51 Type 2 diabetes mellitus with diabetic peripheral angiopathy without gangrene (principal); M35.1 Other overlap syndromes; E11.65 Type 2 diabetes mellitus with hyperglycemia; Z79.4 Long term (current) use of insulin; R60.0 Localized edema; M79.672 Pain in left foot; M79.671 Pain in right foot | CPT/HCPCS: G0463; Z7610 ==

== ENCOUNTER 2019-06-29 13:06 | Emergency (ER) | payer MEDICARE, MEDICAID ==
[~2019-06-29] VITALS: Ht 172.7 cm; Wt 75.7 kg
--- NOTE | 2019-06-29 13:25 | NUR ---
BIB , FROM HOME, C/C DIZZINESS, +N/V x 3 DAYS. AA/OX4, NO SOB NOTED, VITALS STABLE. NO DISTRESS NOTED. CHANGED INTO GOWN, ATTACHED TO THE MONITOR.
[2019-06-29 13:40] LABS: BASOPHILS % (AUTO) 0.9 % (0.0-2.0); EOSINOPHILS % (AUTO) 0.9 % (0.0-6.0); HEMATOCRIT 39 % (39-51); HEMOGLOBIN 12.9 g/dL (13.5-17.5); LYMPHOCYTES # (AUTO) 0.5 /CMM (0.8-4.8); LYMPHOCYTES % (AUTO) 18.1 % (20.0-44.0); MEAN CORPUSCULAR HGB CONC 33 g/dl (31.0-36.0); MEAN CORPUSCULAR VOLUME 92 fL (80-96); MONOCYTES # (AUTO) 0.3 /CMM (0.1-1.30); MONOCYTES % (AUTO) 9.3 % (2.0-12.0); NEUTROPHILS % (AUTO) 70.8 % (43.0-81.0); PLATELET COUNT (AUTO) 55 /CMM (150-450); WHITE BLOOD COUNT (AUTO) 2.9 K/uL (4.3-11.0)
[2019-06-29 13:47] LABS: CALCIUM, SERUM 8.3 mg/dL (8.5-10.1); CREATININE 0.8 mg/dL (0.6-1.3)
[2019-06-29] MEDS ORDERED: ONDANSETRON HCL/PF 4 MG/2 ML VIAL ONE (13:48)
[2019-06-29] MEDS ORDERED: ONDANSETRON HCL/PF 4 MG/2 ML VIAL IVP ONE (14:00)
[2019-06-29] MEDS ORDERED: IV NS 0.9% 1,000 ML BAG IV ONE (14:00)
--- NOTE | 2019-06-29 14:51 | NUR ---
IV removed. Catheter intact and site benign. Pressure and 4x4 applied to site. No bleeding noted. Patient discharged to home in stable condition. Written and verbal after care instructions given. Patient verbalizes understanding of instruction. Ambulatory with a steady gait
[2019-06-29 14:52] VITALS: BP 128/73
[2019-06-29 14:56] LABS: NEUTROPHILS % (MANUAL) 72 (42-76)
[2019-06-29 14:57] LABS: EOSINOPHILS % (MANUAL) 2 % (0-4); LYMPHOCYTES % (MANUAL) 12 % (16-48); MONOCYTES % (MANUAL) 14 % (0-11.0)
== END 2019-06-29 14:52 | disposition home or self-care (01) ==
LOC: ER 13:10
DX: R42 Dizziness and giddiness (principal); D64.9 Anemia, unspecified; E11.9 Type 2 diabetes mellitus without complications; I10 Essential (primary) hypertension; E78.5 Hyperlipidemia, unspecified; Z79.4 Long term (current) use of insulin; Z79.84 Long term (current) use of oral hypoglycemic drugs; Z79.82 Long term (current) use of aspirin; Z79.899 Other long term (current) drug therapy
CPT/HCPCS: 36415; 80048; 85025; 93005; 96361; 96374; 99284; J2405; J7030

== ENCOUNTER 2019-10-29 10:07 | Inpatient (IN) | payer MEDICARE, MEDICAID ==
[~2019-10-29] VITALS: Ht 172.7 cm; Wt 76.2 kg
--- NOTE | 2019-10-29 10:42 | NUR ---
PT CAME INTO THE ED C/O NV X 3 DAYS, GENERALIZED WEAKNESS AND BODY PAIN. 06/02 PS. PT AAOX4, VSS, BREATHING EVEN AND UNLABORED ON ROOM AIR W/ NAD NOTED. PT CONNECTED TO THE MONITOR AND POX
[2019-10-29] MEDS ORDERED: IV NS 0.9% 1,000 ML BAG IV ONE (11:30)
[2019-10-29] MEDS ORDERED: KETOROLAC TROMETHAMINE INJ 30 MG/ML VIAL IV ONE (11:30)
[2019-10-29] MEDS ORDERED: KETOROLAC TROMETHAMINE 15 MG/ML VIAL ONE (11:33)
[2019-10-29 11:46] LABS: BASOPHILS % (AUTO) 0.9 % (0.0-2.0); EOSINOPHILS % (AUTO) 4.8 % (0.0-6.0); HEMATOCRIT 38 % (39-51); HEMOGLOBIN 12.7 g/dL (13.5-17.5); LYMPHOCYTES # (AUTO) 0.9 /CMM (0.8-4.8); LYMPHOCYTES % (AUTO) 28.9 % (20.0-44.0); MEAN CORPUSCULAR HGB CONC 33 g/dl (31.0-36.0); MEAN CORPUSCULAR VOLUME 87 fL (80-96); MONOCYTES # (AUTO) 0.3 /CMM (0.1-1.30); MONOCYTES % (AUTO) 10.2 % (2.0-12.0); NEUTROPHILS # (AUTO) 1.8 /CMM (1.8-8.9); NEUTROPHILS % (AUTO) 55.2 % (43.0-81.0); PLATELET COUNT (AUTO) 65 /CMM (150-450); RED BLOOD CELL COUNT(AUTO) 4.39 MIL/uL (4.5-6.0); WHITE BLOOD COUNT (AUTO) 3.2 K/uL (4.3-11.0)
--- NOTE | 2019-10-29 11:50 | NUR ---
URINE SAMPLE OBTAINED AND SENT TO LAB
--- NOTE | 2019-10-29 11:50 | NUR ---
SWAB SENT FOR INFLUENZA TESTING
[2019-10-29 12:08] LABS: CALCIUM, SERUM 8.6 mg/dL (8.5-10.1); CREATININE 0.8 mg/dL (0.6-1.3); POTASSIUM 4.8 mmol/L (3.5-5.1)
[2019-10-29 12:15] LABS: ALBUMIN 2.8 g/dL (3.4-5.0); BILIRUBIN,DIRECT 0.3 mg/dL (0.0-0.2); BILIRUBIN,TOTAL 2.1 mg/dL (0.2-1.0); TOTAL PROTEIN, SERUM 6.7 g/dL (6.4-8.2)
[2019-10-29 12:33] LABS: APPEARANCE,URINE Clear (CLEAR); BILIRUBIN,URINE SMALL (NEGATIVE); BLOOD, URINE Trace-intact Ery/uL (NEGATIVE); COLOR,URINE Yellow (YELLOW); KETONES,URINE Trace (NEGATIVE); LEUKOCYTE ESTERASE ,URINE Negative (NEGATIVE); NITRITE, URINE Negative (NEGATIVE); PH,URINE 5.5 (5.0-8.0); PROTEIN,URINE Negative (NEGATIVE); UGLUCOSE >=1000 mg/dL (NEGATIVE)
[2019-10-29 12:36] LABS: BACTERIA,URINE Rare /HPF (None Seen); SQUAMOUS EPITHELIAL CELL,UR Rare /HPF (None Seen); WBC,URINE 0-2 /HPF (0-3)
--- NOTE | 2019-10-29 13:16 | NUR ---
CALLED FOR ICU BED
--- NOTE | 2019-10-29 13:20 | NUR ---
[facility]
[2019-10-29 13:22] LABS: EOSINOPHILS % (MANUAL) 1 % (0-4); LYMPHOCYTES % (MANUAL) 30 % (16-48); MONOCYTES % (MANUAL) 11 % (0-11.0); NEUTROPHILS % (MANUAL) 58 (42-76)
[2019-10-29] MEDS ORDERED: INSULIN REGULAR, HUMAN 100 UNIT/ML 10 ML VIAL IV ONE (13:30)
[2019-10-29] MEDS ORDERED: INSULIN REGULAR, HUMAN 100 UNIT/ML 10 ML VIAL ONE (13:36)
--- NOTE | 2019-10-29 14:23 | NUR ---
REPORT GIVEN TO JOE COVINGTON JOSE
--- NOTE | 2019-10-29 14:47 | NUR ---
PT TRANSPORTED TO 112. PT IN STABLE CONDITION
--- NOTE | 2019-10-29 15:00 | NUR ---
RN ADMITTING NOTES ADMITTED 69 YEARS OLD, M, TO UNIT VIA GURNEY WITH E.R NURSE AND . A/O X4. ABLE TO MAKE NEEDS KNOWN. PATIENT ORIENTED TO UNIT, ROOM AND STAFF. NO SIGNS OF DISTRESS NOTED AT THIS TIME. BREATHING EVEN AND UNLABORED. V/S TAKEN AND RECORDED. REFUSED PHYSICAL ASSESSMENT. IV ACCESS ON RAC #18. PATENT AND INTACT. IVF TO BE STARTED. SAFETY MEASURES IN PLACE, BED IN LOW LOCKED POSITION WITH SIDE RAILS UP X2. CALL LIGHT PLACED WITHIN EASY REACH. WILL CONTINUE TO MONITOR.
[2019-10-29] MEDS ORDERED: Z GUARD REMEDY 2 OZ OINT TP PRN (15:30)
[2019-10-29] MEDS ORDERED: HYDROCODONE/APAP 5/325MG 1 EACH TABLET PO PRN (15:30)
[2019-10-29] MEDS ORDERED: DEXTROSE 50%-WATER 50 ML DISP.SYRIN IV PRN (15:30)
[2019-10-29] MEDS ORDERED: ACETAMINOPHEN 325 MG TABLET PO PRN (15:30)
[2019-10-29] MEDS ORDERED: ONDANSETRON HCL/PF 4 MG/2 ML VIAL IVP PRN (15:30)
[2019-10-29] MEDS ORDERED: MAGNESIUM HYDROXIDE 30 ML UDC PO PRN (15:30)
[2019-10-29] MEDS ORDERED: ZOLPIDEM TARTRATE 5 MG TABLET PO PRN (15:30)
[2019-10-29] MEDS ORDERED: MAG HYDROX/AL HYDROX/SIMETH 30 ML UDC PO PRN (15:30)
[2019-10-29 16:00] VITALS: BP 141/71
[2019-10-29] MEDS: IV NS 0.9% 1,000 ML IV PRN (16:04)
[2019-10-29] MEDS: BLOOD SUGAR DIAGNOSTIC 1 EACH STRIP IN SCH ×2 (16:36→22:37)
[2019-10-29] MEDS: INSULIN REGULAR, HUMAN 100 UNIT/ML 3 ML VIAL SQ PRN ×2 (16:40→22:41)
[2019-10-29] MEDS: METFORMIN 500 MG TABLET PO SCH (16:44)
--- NOTE | 2019-10-29 18:43 | NUR ---
RN CLOSING NOTES PATIENT IN BED RESTING COMFORTABLY IN MODERATE HIGH BACK REST. A/O 4. ON RA, TOLERATING WELL. NO SIGNS OF DISTRESS NOTED THROUGHOUT THE SHIFT. IV FLUIDS ON RAC #18 WITH NS RUNNING @75ML/HR. PATENT AND INTACT. SAFETY MEASURES IN PLACE, BED IN LOW LOCKED POSITION WITH SIDE RAILS UP X2. CALL LIGHT WITHIN REACH. WILL ENDORSE TO OPTICAL DESIGN ENGINEER NURSE FOR IZABELA.
--- NOTE | 2019-10-29 19:58 | NUR ---
BILL ADJUSTER OPENING NOTES RECEIVED PATIENT IN BED WITH FAMILY AT BEDSIDE WITH NO SIGN OF ANY DISTRESS OR DISCOMFORT. PATIENT IS ON ROOM AIR WITH NO SOB AND O2 SAT AT 98%. PATIENT ON THE MONITOR IS SR WITH HR OF 64. ALL SAFETY PRECAUTIONS HAVE BEEN APPLIED WILL CONTINUE TO MONITOR PATIENT.
[2019-10-29 20:00] VITALS: BP 137/80
[2019-10-29] MEDS ORDERED: INSULIN GLARGINE, 100 UNIT/ML CARTRIDGE SQ SCH (22:00)
[2019-10-30] VITALS: BP 136/75
[2019-10-30 04:00] VITALS: BP 123/71
[2019-10-30] MEDS: IV NS 0.9% 1,000 ML IV PRN (04:47)
[2019-10-30 07:07] LABS: BASOPHILS % (AUTO) 1.2 % (0.0-2.0); CALCIUM, SERUM 8.2 mg/dL (8.5-10.1); CREATININE 0.7 mg/dL (0.6-1.3); EOSINOPHILS % (AUTO) 6.9 % (0.0-6.0); HEMATOCRIT 37 % (39-51); HEMOGLOBIN 12.1 g/dL (13.5-17.5); LYMPHOCYTES # (AUTO) 0.9 /CMM (0.8-4.8); LYMPHOCYTES % (AUTO) 32.4 % (20.0-44.0); MAGNESIUM 1.7 mg/dL (1.8-2.4); MEAN CORPUSCULAR HGB CONC 33 g/dl (31.0-36.0); MEAN CORPUSCULAR VOLUME 86 fL (80-96); MONOCYTES # (AUTO) 0.3 /CMM (0.1-1.30); MONOCYTES % (AUTO) 12.1 % (2.0-12.0); NEUTROPHILS # (AUTO) 1.3 /CMM (1.8-8.9); NEUTROPHILS % (AUTO) 47.4 % (43.0-81.0); PHOSPHORUS 3.8 mg/dL (2.5-4.9); POTASSIUM 3.7 mmol/L (3.5-5.1); RED BLOOD CELL COUNT(AUTO) 4.29 MIL/uL (4.5-6.0); WHITE BLOOD COUNT (AUTO) 2.7 K/uL (4.3-11.0)
--- NOTE | 2019-10-30 07:30 | NUR ---
GI ASST AM NOTES RECEIVED PATIENT IN BED, AAO X 4, ON ROOM AIR, NOT IN ANY DISTRESS, NO SOB, SINUS RHYTHM ON TELE MONITOR, WITH RAC G 18 WITH NS AT 75 ML INFUSING WELL, SITE CLEAR. FULL LIQUIDS AT THIS TIME, AMBULATORY. ALL SAFETY PRECAUTIONS HAVE BEEN APPLIED. CALL LIGHT WITHIN REACH. WILL CONTINUE TO MONITOR PATIENT.
--- NOTE | 2019-10-30 07:37 | NUR ---
RACK WASHER CLOSING NOTE PATIENT IN BED ASLEEP. WITH NO SIGNS OF ANY DISTRESS. PATIENT IS ON ROOM AIR WITH NO SOB. IV ACCESS ON RAC #18 NS @ 75ML/HR. PATIENT DOES NOT COMPLAIN OF PAIN. ALL SAFETY PRECAUTIONS APPLIED. ENDORSED PATIENT TO MORNING SHIFT NURSE.
[2019-10-30 07:38] LABS: PLATELET COUNT (AUTO) 50 /CMM (150-450)
[2019-10-30 07:41] LABS: THYROID STIMULATING HORMONE 1.935 uIU/mL (0.358-3.74)
[2019-10-30 08:00] VITALS: BP 141/80
--- NOTE | 2019-10-30 08:15 | NUR ---
RN NOTES ACCUCHECK DONE. BS 107 MG/DL. NO INSULIN COVERAGE GIVEN
[2019-10-30] MEDS: BLOOD SUGAR DIAGNOSTIC 1 EACH STRIP IN SCH ×2 (08:17→12:01)
[2019-10-30] MEDS ORDERED: LINAGLIPTIN 5 MG TABLET PO SCH (09:00)
[2019-10-30] MEDS ORDERED: ATORVASTATIN 10 MG TABLET PO SCH (09:00)
[2019-10-30] MEDS ORDERED: ASPIRIN 81 MG TAB.CHEW PO SCH (09:00)
[2019-10-30] MEDS ORDERED: BENAZEPRIL HCL 20 MG TABLET PO SCH (09:00)
[2019-10-30 09:10] VITALS: BP 141/80
[2019-10-30] MEDS: METFORMIN 500 MG TABLET PO SCH (09:10)
[2019-10-30 09:18] LABS: BAND % (MANUAL) 1 % (0.0-5.0); EOSINOPHILS % (MANUAL) 4 % (0-4); LYMPHOCYTES % (MANUAL) 34 % (16-48); MONOCYTES % (MANUAL) 9 % (0-11.0); NEUTROPHILS % (MANUAL) 52 (42-76)
--- NOTE | 2019-10-30 09:30 | NUR ---
RN NOTES DUE MEDS GIVEN
[2019-10-30] MEDS: Magnesium 1GM/D5W 100ML PREMIX 100 ML IV SCH ×2 (12:01→13:17)
--- NOTE | 2019-10-30 12:01 | NUR ---
RN NOTES ACCUCHECK DONE. BS 169 MG/DL. 3 UNITS HUM R GIVEN PER SS.
[2019-10-30] MEDS: INSULIN REGULAR, HUMAN 100 UNIT/ML 3 ML VIAL SQ PRN (12:11)
--- NOTE | 2019-10-30 15:37 | NUR ---
ROD PULLER AND COILER NOTES PATIENT DISCHARGE TO HOME TODAY PER MD IN STABLE CONDITION PROVIDED DC INSTRUCTIONS, MED RECON LIST AND HEALTH TEACHINGS. PATIENT TO FOLLOW UP WITH PCP IN 1 WEEK AND WILL MAKE OWN APPOINTMENT. ALL BELONGINGS CHECKED AND RETURNED. IV ACCESS TO RIGHT AC REMOVED. PRESSURE APPLIED,NO BLEEDING,DRESSING IN PLACE. ALL PAPERWORKS SIGNED. PATIENT REFUSED TO HAVE SKIN ASSESSED. AMBULATED AND ACCOMPANIED BY SAP PP CONSULTANT, AND SON TO LOBBY AND WILL GO HOME VIA PRIVATE CAR BY .
== END 2019-10-30 15:37 | disposition home or self-care (01) | DRG 391 ==
LOC: ER 10:09 → TELE-TD 14:14 → TELE1 15:43 → MEDSG1 10-30 10:12
DX: A08.4 Viral intestinal infection, unspecified (principal); D61.811 Other drug-induced pancytopenia; K76.6 Portal hypertension; K74.60 Unspecified cirrhosis of liver; Z79.84 Long term (current) use of oral hypoglycemic drugs; Z87.891 Personal history of nicotine dependence; I10 Essential (primary) hypertension; E83.42 Hypomagnesemia; E78.5 Hyperlipidemia, unspecified; D75.9 Disease of blood and blood-forming organs, unspecified; F10.20 Alcohol dependence, uncomplicated; Y90.9 Presence of alcohol in blood, level not specified; E11.65 Type 2 diabetes mellitus with hyperglycemia; I35.0 Nonrheumatic aortic (valve) stenosis; R16.2 Hepatomegaly with splenomegaly, not elsewhere classified
CPT/HCPCS: 36415; 80048-TC; 80061-TC; 80076-TC; 81000-TC; 82962-TC; 83690-TC; 83735-TC; 84100-TC; 84443-TC; 85025-TC; 87081-TC; G0378; J1815; J1885; J3475; J7030

== ENCOUNTER 2019-11-02 14:39 | Outpatient (CLI) | payer MEDICARE, MEDICAID ==
[2019-11-02 15:23] VITALS: BP 124/75
== END 2019-11-02 23:59 | disposition home or self-care (01) ==
LOC: MSC 14:39
PROVIDERS: ATTEND Internal Medicine
DX: A08.4 Viral intestinal infection, unspecified (principal); K74.60 Unspecified cirrhosis of liver; K76.6 Portal hypertension; I10 Essential (primary) hypertension; E11.9 Type 2 diabetes mellitus without complications; Z79.4 Long term (current) use of insulin; Z79.84 Long term (current) use of oral hypoglycemic drugs; E78.5 Hyperlipidemia, unspecified; D61.818 Other pancytopenia; R16.2 Hepatomegaly with splenomegaly, not elsewhere classified; K21.9 Gastro-esophageal reflux disease without esophagitis; Z79.82 Long term (current) use of aspirin; Z79.899 Other long term (current) drug therapy

== ENCOUNTER 2019-12-30 22:02 | Inpatient (IN) | payer MEDICARE, MEDICAID ==
[~2019-12-30] VITALS: Ht 172.7 cm; Wt 72.6 kg
[2019-12-30] MEDS ORDERED: hydrALAZINE HCL IV 20 MG VIAL ONE (22:17)
--- NOTE | 2019-12-30 22:17 | NUR ---
BLOOD DRAWN AND SENT TO LAB FOR TESTING.
--- NOTE | 2019-12-30 22:22 | NUR ---
XRAY AT BEDSIDE
[2019-12-30] MEDS ORDERED: IV NS 0.9% 250 ML IV ONE (22:24)
[2019-12-30] MEDS ORDERED: IOHEXOL-350 100 ML VIAL IV ONE (22:24)
[2019-12-30] MEDS ORDERED: CT SWABBABLE VALVE TRANS SET 1 EA INFUS.SET MC ONE (22:24)
--- NOTE | 2019-12-30 22:29 | NUR ---
Note undone in EDM - 12/30/19 at 2358 by BOYD PT CAME TO ER BIB C/O ALTERED MENTAL STATUS. PT'S STATES THAT IT HAS BEEN SINCE 1400 THAT HE STARTED HAVING SYMPTOMS OF WEAKNESS AND ALTERED MENTAL STATUS. STATES THAT HIS SYMPTOMS HAD BEEN GETTING WORSE FOR THE LAST 5 HOURS ENTERPRISE ANALYST. PT IS CURRENTLY AAOX3. NO SOB. BREATHING EVENLY AND UNLABORED ON 2L OF NASAL CANNULA. 02 SATURATION AT 98%. CONNECTED TO WASH OPERATOR.
--- NOTE | 2019-12-30 22:29 | NUR ---
PT CAME TO ER BIB C/O ALTERED MENTAL STATUS. PT'S STATES THAT IT HAS BEEN SINCE 1400 THAT HE STARTED HAVING SYMPTOMS OF WEAKNESS AND ALTERED MENTAL STATUS. STATES THAT HIS SYMPTOMS HAD BEEN GETTING WORSE FOR THE LAST 5 HOURS CONSTRUCTION MILLWRIGHT. PT IS CURRENTLY AAOX1. PATIENT UNABLE TO VERIFY THE YEAR OF DATE. DOES NOT KNOW WHERE HE IS. NO SOB. BREATHING EVENLY AND UNLABORED ON 2L OF NASAL CANNULA. 02 SATURATION AT 98%. CONNECTED TO ADDING MACHINE MECHANIC.
[2019-12-30] MEDS ORDERED: hydrALAZINE HCL IV 20 MG VIAL IV ONE (22:30)
[2019-12-30] MEDS ORDERED: ONDANSETRON HCL/PF 4 MG/2 ML VIAL ONE (22:33)
[2019-12-30 22:36] LABS: BASOPHILS # (AUTO) 0.1 /CMM (0.0-0.2); BASOPHILS % (AUTO) 1.4 % (0.0-2.0); EOSINOPHILS % (AUTO) 6.4 % (0.0-6.0); HEMATOCRIT 41 % (39-51); HEMOGLOBIN 13.8 g/dL (13.5-17.5); LYMPHOCYTES # (AUTO) 1.5 /CMM (0.8-4.8); LYMPHOCYTES % (AUTO) 28.1 % (20.0-44.0); MEAN CORPUSCULAR HGB CONC 34 g/dl (31.0-36.0); MEAN CORPUSCULAR VOLUME 90 fL (80-96); MONOCYTES # (AUTO) 0.6 /CMM (0.1-1.30); MONOCYTES % (AUTO) 11.6 % (2.0-12.0); NEUTROPHILS # (AUTO) 2.8 /CMM (1.8-8.9); NEUTROPHILS % (AUTO) 52.5 % (43.0-81.0); PLATELET COUNT (AUTO) 101 /CMM (150-450); RED BLOOD CELL COUNT(AUTO) 4.55 MIL/uL (4.5-6.0); WHITE BLOOD COUNT (AUTO) 5.4 K/uL (4.3-11.0)
--- NOTE | 2019-12-30 22:40 | NUR ---
RADIOLOGY CALLED FOR CT.
[2019-12-30 22:46] LABS: CARBON DIOXIDE 24 mmol/L (21-32); CHLORIDE 109 mmol/L (98-107); CREATININE 0.8 mg/dL (0.6-1.3); GLUCOSE 153 mg/dL (74-106); SODIUM SERUM 142 mmol/L (136-145); UREA NITROGEN, BLOOD 10 mg/dL (7-18)
[2019-12-30 22:52] LABS: ALANINE AMINOTRANSFERASE 31 U/L (12-78); ALBUMIN 3.3 g/dL (3.4-5.0); ALKALINE PHOSPHATASE 164 U/L (46-116); ASPARTATE AMINOTRANSFERASE 34 U/L (15-37); BILIRUBIN,DIRECT 0.4 mg/dL (0.0-0.2); BILIRUBIN,TOTAL 1.7 mg/dL (0.2-1.0); TOTAL PROTEIN, SERUM 7.5 g/dL (6.4-8.2)
--- NOTE | 2019-12-30 22:53 | NUR ---
PATIENT RETURNED FROM CT
[2019-12-30] MEDS ORDERED: ONDANSETRON HCL/PF 4 MG/2 ML VIAL IV ONE (23:00)
--- NOTE | 2019-12-30 23:01 | NUR ---
PATIENT'S STATES THAT YESTERDAY, PATIENT WENT TO GO SEE THE AND WAS GIVEN MEDICATIONS THAT HE TOOK TODAY. EVERSINCE HE TOOK THE MEDICATIONS TODAY, HIS MENTAL STATUS BECAME ALTERED. MEDICATIONS TOOKEN: MECLIZINE 25MG, PANTOPRAZOLE 20MG, ONDANSETRON 4MG, AND PROPRANOLOL 10MG.
--- NOTE | 2019-12-30 23:02 | NUR ---
MD NOTIFIED OF MEDICATIONS TAKEN TODAY.
--- NOTE | 2019-12-30 23:06 | NUR ---
PATIENT TAKEN FOR CTA
[2019-12-30] MEDS ORDERED: LIDOCAINE 2% JEL UROJET 10 ML MM ONE ×2 (23:15→23:30)
[2019-12-30 23:16] LABS: CHOLESTEROL 177 mg/dL (<200); HDL CHOLESTEROL 73 mg/dL (40-60); LDL 101 mg/dL (0-99); TRIGLYCERIDES 59 mg/dL (30-150)
--- NOTE | 2019-12-30 23:24 | NUR ---
URINE COLLECTED AND SENT TO LAB
--- NOTE | 2019-12-30 23:29 | NUR ---
GUN NUMBERER AT BEDSIDE FOR REPEAT BLOODDRAW
[2019-12-30 23:32] LABS: APPEARANCE,URINE Clear (CLEAR); BILIRUBIN,URINE Negative (NEGATIVE); BLOOD, URINE Negative Ery/uL (NEGATIVE); COLOR,URINE Yellow (YELLOW); KETONES,URINE 15 (NEGATIVE); LEUKOCYTE ESTERASE ,URINE Negative (NEGATIVE); NITRITE, URINE Negative (NEGATIVE); PH,URINE 8.5 (5.0-8.0); PROTEIN,URINE Trace mg/dl (NEGATIVE); UGLUCOSE 500 MG/DL mg/dL (NEGATIVE)
[2019-12-30 23:43] LABS: BACTERIA,URINE Rare /HPF (None Seen); RBC,URINE NONE SEEN /HPF (0-2); SQUAMOUS EPITHELIAL CELL,UR Few /HPF (None Seen); WBC,URINE NONE SEEN /HPF (0-3)
[2019-12-31 00:01] LABS: SERUM AMMONIA 290 umol/L (11-32)
[2019-12-31 00:04] LABS: ACETAMINOPHEN < 2 ug/ml (10-30); ALCOHOL, BLOOD < 3 mg/dL (0-0); SALICYLATE < 0.2 mg/dL (2.8-20.0)
[2019-12-31] MEDS ORDERED: Z GUARD REMEDY 2 OZ OINT TP PRN (00:30)
[2019-12-31] MEDS ORDERED: MAGNESIUM HYDROXIDE 30 ML UDC PO PRN (00:30)
[2019-12-31] MEDS ORDERED: ONDANSETRON HCL/PF 4 MG/2 ML VIAL IVP PRN (00:30)
[2019-12-31] MEDS ORDERED: DEXTROSE 50%-WATER 50 ML DISP.SYRIN IV PRN (00:30)
[2019-12-31] MEDS ORDERED: MAG HYDROX/AL HYDROX/SIMETH 30 ML UDC PO PRN (00:30)
[2019-12-31] MEDS ORDERED: MORPHINE SULFATE INJ 2 MG/ML DISP.SYRIN IV PRN (00:30)
[2019-12-31] MEDS ORDERED: LACTULOSE 10 G/15 ML UDC (PYXIS) PO ONE (00:30)
[2019-12-31] MEDS ORDERED: LACTULOSE 10 G/15 ML UDC (PYXIS) ONE ×2 (00:35→00:38)
--- NOTE | 2019-12-31 00:48 | NUR ---
CALLED FOR REPORT, NURSE IS UNAVAILABLE RIGHT NOW, JASMYNE IS THE NURSE. SAID TO CALL BACK IN 15 MINUTES.
[2019-12-31] MEDS ORDERED: TEMAZEPAM 7.5 MG CAPSULE PO PRN (01:00)
--- NOTE | 2019-12-31 01:05 | NUR ---
REPORT GIVEN TO JASMYNE CAMPOS FOR IZABELA.
--- NOTE | 2019-12-31 01:30 | NUR ---
ADMISSION NOTES: RECEIVED ER REPORT FROM KELSIE DIAZ. PT BROUGHT TO THE UNIT VIA STRETCHER. MET WITH PT'S AT BED SIDE. TRISTANIAN SPEAKING SPOUSE, ANA M SUGAR ASSISTED WITH TRANSLATION. PT NOTED TO BE LETHARGIC, DIFFICULT TO AROUSE, OPEN EYES TO PAINFUL STIMULI. UNABLE TO PERFORM SWALLOW SCREEN MATTHEW TO CURRENT STATUS. ALSO NIHSS PERFORMED, BUT MOSTLY UNTESTABLE BECAUSE OF CURRENT SITUATION/STATUS OF PT. VS TAKEN AND RECORDED. PT PLACED FAZAL 2L OXYGEN. SKIN ASSESSMENT PERFORMED. PLEASE SEE SKIN LOG FOR DETAILS. INVENTORY OF BELONGINGS COMPLETED BY SUGAR MORATAYA. PT'S ANSWERED ALL THE INTERVIEW QUESTIONNAIRES. PT DECIDED TO STAY WITH THE PT. DUE TO PT'S MENTAL STATUS, ORIENTED PT'S TO UNIT POLICY AND HOURLY ROUNDING, USE OF CALL LIGHT SYSTEM. DISCUSSED PLAN OF CARE. WILL NOTIFY MD REGARDING THE CONDITION OF PT. SUCTION SET UP SECURED. SAFETY PRECAUTIONS FOR FALL INITIATED, CALL LIGHT IN REACH, WILL CONTINUE MONITORING PT.
[2019-12-31 02:00] VITALS: BP_SYST 122; BP_SYST 146; BP_DIAS 70; BP_DIAS 86
[2019-12-31 02:02] VITALS: BP 146/83
[2019-12-31] MEDS: BLOOD SUGAR DIAGNOSTIC 1 EACH STRIP IN SCH ×5 (02:02→21:33)
--- NOTE | 2019-12-31 02:02 | NUR ---
BLOOD GLUCOSE 147: FINGERSTICK BLOOD GLUCOSE CHECK PERFORMED, RESULT OBTAINED IS 147. PT HAD LAST MEAL YESTERDAY MORNING ACCORDING TO PT'S .
--- NOTE | 2019-12-31 02:16 | NUR ---
CRITICAL RESULT LACTIC ACID: RECEIVED CRITICAL RESULT FOR LACTIC ACID REFLEX, RESULT IS 2.9, REPORTED BY JIGNESH FROM LAB. INITIAL RESULT IS 2.7. CONTACTED HOSPITALIST DATA ASSISTANT, BORIS ADAMSON, AWAITING FOR RESPONSE. ALSO MADE AWARE OF CURRENT VS, AND PT'S STATUS, MADE AWARE PT IS LETHARGIC, UNABLE TO FOLLOW ANY COMMANDS, AROUSES WITH PAINFUL STIMULI ONLY. INFORMED MD UNSAFE FOR PT TO TAKE PO MEDICINE. PT HAS SCHEDULE LACTULOSE AT 0500AM. AWAITING RESPONSE FROM .
--- NOTE | 2019-12-31 03:29 | NUR ---
RN NOTES: NOTIFIED BOOSTER PUMP OPERATOR LEASE PURCHASE DRIVER REGARDING PT STATUS. UPON REASSESSMENT, PT MORE AWAKE, A/O X1 ABLE TO STATE HIS NAME, UNABLE TO STATE DATE OF , BUT ABLE TO FOLLOW SIMPLE COMMANDS IN [place]. PT ABLE TO MOVE ARMS AND LEGS, NO FACIAL DROOP NOTED, PT DENIES ANY PAIN OR DISCOMFORT. NOTIFIED THAT PT PASSED SWALLOW SCREEN NOW.
--- NOTE | 2019-12-31 03:50 | NUR ---
RN NOTES: FOLOWED UP WITH BANK PRESIDENT REGARDING LACTIC ACID RESULT OF 2.9, AWAITING RESPONSE.
--- NOTE | 2019-12-31 03:54 | NUR ---
RN NOTES: RECEIVED TELEPHONE ORDER FROM MUSICAL THERAPIST MUSIC ARRANGER TO GIVE NS AT 75ML/HR. ORDERS READ BACK VERIFIED AND CARRIED OUT.
[2019-12-31 04:00] VITALS: BP 122/76
[2019-12-31] MEDS ORDERED: IV NS 0.9% 1,000 ML IV SCH (04:00)
--- NOTE | 2019-12-31 04:33 | NUR ---
rn notes: pt more awake, a/o x3 now, able to follow commands, all communication translated in wolof with help of queta leal, nihss score 0. pt denies any pain or discomfort at this time. pt has no bm yet, but able to void.
[2019-12-31] MEDS: LACTULOSE 10 G/15 ML UDC (PYXIS) PO SCH ×3 (05:22→21:33)
--- NOTE | 2019-12-31 05:27 | NUR ---
rn notes: aspiration precaution followed. placed pt on high fowlers position. due meds administered. pt able to swallow medications. no s/s of aspiration noted. kept hob 45 degree's, will leave for 30 mins in this position to prevent aspiration.
[2019-12-31] MEDS: INSULIN REGULAR, HUMAN 100 UNIT/ML 3 ML VIAL SQ PRN ×4 (06:19→21:36)
--- NOTE | 2019-12-31 06:20 | NUR ---
BLOOD GLUCOSE 153: BLOOD GLUCOSE CHECK RESULT IS 153, PT LAST MEAL INTAKE WAS YESTERDAY MORNING. PER PT'S TO GIVE INSULIN WHEN BREAKFAST TRAY AVAILABLE.
--- NOTE | 2019-12-31 06:52 | NUR ---
END OF SHIFT REPORT: PT A/O X3 ON 2L OXYGEN VIA NC, DENIES ANY PAIN OR DISCOMFORT AT THIS TIME. IV ACCESS REMAINS PATENT AND FLUSHING WELL, INFUSING WITH NS AT 75ML/HR. NO S/S OF IV INFILTRATION NOTED. REMAINS ON SINUS RHYTHM HR 73. PT VOIDED IN THE URINAL, STILL NO BM. PT PASSED SWALLOW SCREEN, ABLE TO TOLERATE PO MEDICATIONS AND ORAL FLUIDS. AT BED SIDE. discussed to family regarding plan of care, all questions answered based on plan of care of md and lab result. VS REMAINS STABLE, NEEDS ATTENDED. SAFETY PRECAUTIONS FOR FALL REMAINS ENGAGED, CALL LIGHT IN REACH, WILL ENDORSE TO DAY RN FOR CONTINUITY OF CARE.
--- NOTE | 2019-12-31 07:35 | NUR ---
RN [id number] NOTES RECEIVED PATIENT IN BED RESTING COMFORTABLY IN MODERATE HIGH BACK REST. A/O X3. FAMILY AT BED SIDE. NO SIGNS OF DISTRESS NOTED AT THIS TIME. ON TELE MONITORING WITH CURRENT READING OF SR WITH HR OF 70'S. IV FLUIDS ON RIGHT AC #18 WITH NS RUNNING @75ML/HR. PATENT AND INTACT. SAFETY MEASURES IN PLACE, BED IN LOW LOCKED POSITION WITH SIDE RAILS UP X2. CALL LIGHT WITHIN REACH. WILL CONTINUE TO MONITOR.
[2019-12-31 08:00] VITALS: BP 141/79
[2019-12-31] MEDS: LINAGLIPTIN 5 MG TABLET PO SCH (08:26)
[2019-12-31] MEDS: ATORVASTATIN 10 MG TABLET PO SCH (08:26)
[2019-12-31] MEDS: ASPIRIN 81 MG TAB.CHEW PO SCH (08:26)
[2019-12-31] MEDS: BENAZEPRIL HCL 10 MG TABLET PO SCH (08:30)
[2019-12-31] MEDS ORDERED: METFORMIN 500 MG TABLET PO SCH (09:00)
--- NOTE | 2019-12-31 14:34 | NUR ---
Social service consult requested by complex case manager Mark for possible homelessness. STENOTYPE MACHINE OPERATOR and complex case manager Kika met with pt and his bedside. Pt is alert and oriented x 4. Pt is Portuguese speaking. Pt is not homeless. Pt resides with his [place] [address] [place] [address] in [facility]. Pt's Naomi is his emergency contact and can be reached at . Pt is independent with his ADLS per pt. No social service needs are requested at this time.
[2019-12-31 16:00] VITALS: BP 101/60
--- NOTE | 2019-12-31 18:33 | NUR ---
RN CLOSING NOTES PATIENT IN BED RESTING COMFORTABLY IN MODERATE HIGH BACK REST. A/O X4. NO SIGNS OF DISTRESS NOTED THROUGHOUT THE SHIFT. IV ACCESS ON LEFT AC #20. PATENT AND INTACT. SAFETY MEASURES IN PLACE, BED IN LOW LOCKED POSITION WITH SIDE RAILS UP X2. CALL LIGHT WITHIN REACH. WILL ENDORSE TO AUTOMOTIVE SERVICE PORTER NURSE FOR IZABELA.
--- NOTE | 2019-12-31 19:25 | NUR ---
RN OPEN NOTES RECEIVED PATIENT AWAKE IN BED WITH FAMILY AT BEDSIDE. A/OX3. NO SIGNS OF DISTRESS OR DISCOMFORT. BREATHING EVEN AND UNLABORED. IV ACCESS IN LAC, PATENT AND INTACT, NO SIGNS OF REDNESS OR INFILTRATION. BED IN LOW LOCKED POSITION WITH SIDE RAILS X2. CALL LIGHT WITHIN REACH. WILL CONTINUE TO MONITOR.
[2019-12-31 20:00] VITALS: BP 95/61
[2019-12-31] MEDS: INSULIN GLARGINE, 100 UNIT/ML CARTRIDGE SQ SCH (21:35)
[2020-01-01 04:00] VITALS: BP 132/72
--- NOTE | 2020-01-01 04:00 | NUR ---
RN NOTES PATIENT ATTACHED TO TELE MONITOR WITH SR 75 NOTED
[2020-01-01] MEDS: LACTULOSE 10 G/15 ML UDC (PYXIS) PO SCH ×3 (05:37→21:56)
[2020-01-01] MEDS: BLOOD SUGAR DIAGNOSTIC 1 EACH STRIP IN SCH ×4 (06:37→22:14)
[2020-01-01] MEDS: INSULIN REGULAR, HUMAN 100 UNIT/ML 3 ML VIAL SQ PRN ×3 (06:38→17:53)
[2020-01-01 06:54] LABS: BASOPHILS % (AUTO) 0.6 % (0.0-2.0); EOSINOPHILS % (AUTO) 3.2 % (0.0-6.0); HEMATOCRIT 39 % (39-51); HEMOGLOBIN 12.8 g/dL (13.5-17.5); LYMPHOCYTES # (AUTO) 0.8 /CMM (0.8-4.8); LYMPHOCYTES % (AUTO) 13.7 % (20.0-44.0); MEAN CORPUSCULAR HGB CONC 33 g/dl (31.0-36.0); MEAN CORPUSCULAR VOLUME 90 fL (80-96); MONOCYTES # (AUTO) 0.7 /CMM (0.1-1.30); MONOCYTES % (AUTO) 12.2 % (2.0-12.0); NEUTROPHILS % (AUTO) 70.3 % (43.0-81.0); PLATELET COUNT (AUTO) 59 /CMM (150-450); RED BLOOD CELL COUNT(AUTO) 4.26 MIL/uL (4.5-6.0); WHITE BLOOD COUNT (AUTO) 5.7 K/uL (4.3-11.0)
--- NOTE | 2020-01-01 06:54 | NUR ---
RN CLOSING NOTES PATIENT RESTING COMFORTABLY IN BED WITH FAMILY AT BEDSIDE. A/OX3. NO SIGNS OF DISTRESS OR DISCOMFORT. BREATHING EVEN AND UNLABORED. ON TELE MONITOR WITH SR 76 NOTED. IV ACCESS IN RAC, PATENT AND INTACT, NO SIGNS OF REDNESS OR INFILTRATION. ALL NEEDS MET. NO SIGNIFICANT CHANGES THROUGH THE NIGHT. BED IN LOW LOCKED POSITION WITH SIDE RAILS X2. CALL LIGHT WITHIN REACH. WILL ENDORSE TO AM SHIFT FOR IZABELA. Addendum: 01/01/20 at 0707 by VICKY MIGUEL RN HAS F/C INTACT DRAINING CLEAR YELLOW FLUID. Addendum: 01/01/20 at 0707 by VICKY MIGUEL RN ERROR: PATIENT DOES NOT HAVE DIAMOND
[2020-01-01 07:04] LABS: CALCIUM, SERUM 8.3 mg/dL (8.5-10.1); CREATININE 0.9 mg/dL (0.6-1.3); MAGNESIUM 2.1 mg/dL (1.8-2.4); PHOSPHORUS 3.6 mg/dL (2.5-4.9)
[2020-01-01 08:00] VITALS: BP 132/78
[2020-01-01] MEDS: ATORVASTATIN 10 MG TABLET PO SCH (08:16)
[2020-01-01] MEDS: LINAGLIPTIN 5 MG TABLET PO SCH (08:17)
[2020-01-01] MEDS: BENAZEPRIL HCL 10 MG TABLET PO SCH (08:17)
[2020-01-01] MEDS: ASPIRIN 81 MG TAB.CHEW PO SCH (08:17)
[2020-01-01 08:49] LABS: LYMPHOCYTES % (MANUAL) 15 % (16-48); MONOCYTES % (MANUAL) 7 % (0-11.0); NEUTROPHILS % (MANUAL) 78 (42-76)
[2020-01-01 16:00] VITALS: BP 121/69
--- NOTE | 2020-01-01 17:00 | NUR ---
RN NOTES PATIENT HAS A TEMPERATURE OF 100.2, NOTED WITH PRODUCTIVE COUGH AND COMPLAINED OF RIGHT SHOULDER PAIN. COOLING MEASURES WAS APPLIED, MD NOTIFIED WITH ORDERS OF RIGHT SHOULDER XR AND BLOOD CULTUREX2. ORDERS MADE AND CARRIED OUT. WILL CONTINUE TO MONITOR.
--- NOTE | 2020-01-01 18:20 | NUR ---
RN NOTES CHECKED TEMPERATURE AGAIN AND IT WENT DOWN TO 98.3. WILL CONTINUE TO MONITOR.
--- NOTE | 2020-01-01 18:35 | NUR ---
RN CLOSING NOTES PATIENT IN BED RESTING COMFORTABLY IN MODERATE HIGH BACK REST. A/O X3. FAMILY AT BEDSIDE. IV ACCESS IN RAC #18, PATENT AND INTACT, NO SIGNS OF REDNESS OR INFILTRATION. SAFETY MEASURES IN PLACE, BED IN LOW LOCKED POSITION WITH SIDE RAILS X2. CALL LIGHT WITHIN REACH. WILL ENDORSE TO HEATING AND VENTILATING TENDER NURSE FOR IZABELA.
--- NOTE | 2020-01-01 19:15 | NUR ---
MS RN NOTES RECEIVED PT IN BED AWAKE AND ABLE TO MAKE NEEDS KNOWN WITH FAMILY AT BEDSIDE. A/O X3. RESPIRATIONS EVEN AND UNLABORED WITH NO S/SO OF ACUTE DISTRESS OR SOB NOTED. NO COMPLAINTS OF PAIN AT THIS TIME. PT NOTED WITH IV IN RAC #18, PATENT AND INTACT AND SL. SAFETY MEASURES IN PLACE, BED IN LOWEST LOCKED POSITION WITH SIDE RAILS X2. CALL LIGHT WITHIN REACH. WILL CONTINUE TO MONITOR.
[2020-01-01 20:04] VITALS: BP 122/71
[2020-01-01] MEDS: INSULIN GLARGINE, 100 UNIT/ML CARTRIDGE SQ SCH (22:15)
[2020-01-02] MEDS: LACTULOSE 10 G/15 ML UDC (PYXIS) PO SCH ×3 (05:58→21:18)
[2020-01-02 06:23] LABS: BASOPHILS % (AUTO) 0.6 % (0.0-2.0); EOSINOPHILS % (AUTO) 1.7 % (0.0-6.0); HEMATOCRIT 35 % (39-51); HEMOGLOBIN 11.9 g/dL (13.5-17.5); LYMPHOCYTES % (AUTO) 18.8 % (20.0-44.0); MEAN CORPUSCULAR HGB CONC 34 g/dl (31.0-36.0); MEAN CORPUSCULAR VOLUME 90 fL (80-96); MONOCYTES # (AUTO) 0.9 /CMM (0.1-1.30); MONOCYTES % (AUTO) 16.3 % (2.0-12.0); NEUTROPHILS # (AUTO) 3.3 /CMM (1.8-8.9); NEUTROPHILS % (AUTO) 62.6 % (43.0-81.0); RED BLOOD CELL COUNT(AUTO) 3.92 MIL/uL (4.5-6.0); WHITE BLOOD COUNT (AUTO) 5.2 K/uL (4.3-11.0)
[2020-01-02 06:37] LABS: ALBUMIN 2.6 g/dL (3.4-5.0); BILIRUBIN,DIRECT 0.5 mg/dL (0.0-0.2); BILIRUBIN,TOTAL 2.3 mg/dL (0.2-1.0); CALCIUM, SERUM 7.9 mg/dL (8.5-10.1); CREATININE 0.8 mg/dL (0.6-1.3); MAGNESIUM 1.8 mg/dL (1.8-2.4); PHOSPHORUS 2.8 mg/dL (2.5-4.9); POTASSIUM 3.4 mmol/L (3.5-5.1); TOTAL PROTEIN, SERUM 6.2 g/dL (6.4-8.2)
[2020-01-02] MEDS: BLOOD SUGAR DIAGNOSTIC 1 EACH STRIP IN SCH ×4 (06:42→21:25)
--- NOTE | 2020-01-02 06:45 | NUR ---
MS RN NOTES PT IN BED AWAKE AND ABLE TO MAKE NEEDS KNOWN WITH FAMILY AT BEDSIDE. A/O X3. RESPIRATIONS EVEN AND UNLABORED WITH NO S/SO OF ACUTE DISTRESS OR SOB NOTED THROUGHOUT SHIFT. NO COMPLAINTS OF PAIN AT THIS TIME. PT NOTED WITH IV IN RAC #18, PATENT AND INTACT AND SL. SAFETY MEASURES IN PLACE, BED IN LOWEST LOCKED POSITION WITH SIDE RAILS X2. CALL LIGHT WITHIN REACH. WILL ENDORSE TO ONCOMING NURSE FOR IZABELA.
[2020-01-02 06:49] LABS: PLATELET COUNT (AUTO) 44 /CMM (150-450)
--- NOTE | 2020-01-02 06:51 | NUR ---
MS RN NOTES PT NOTED WITH CRITICAL LAB VALUE FOR PLATELETS AT 44K. MADE AWARE. AWAITING ORDERS. WILL CONTINUE TO MONITOR.
--- NOTE | 2020-01-02 06:52 | NUR ---
MS RN NOTES MD RESPONDED BACK FOR CRITICAL LAB VALUE FOR PLATELETS. NO NEW ORDERS. WILL CONTINUE TO MONITOR.
[2020-01-02] MEDS: INSULIN REGULAR, HUMAN 100 UNIT/ML 3 ML VIAL SQ PRN ×4 (06:58→21:30)
[2020-01-02 07:02] LABS: BAND % (MANUAL) 4 % (0.0-5.0); EOSINOPHILS % (MANUAL) 4 % (0-4); LYMPHOCYTES % (MANUAL) 15 % (16-48); MONOCYTES % (MANUAL) 17 % (0-11.0); NEUTROPHILS % (MANUAL) 60 (42-76)
--- NOTE | 2020-01-02 07:24 | NUR ---
RN OPENING NOTES RECEIVED PATIENT IN BED RESTING COMFORTABLY IN MODERATE HIGH BACK REST. A/O X3. FAMILY AT BEDSIDE. NO SIGNS OF DISTRESS NOTED AT THIS TIME. IV ACCESS IN RAC #18, PATENT AND INTACT, NO SIGNS OF REDNESS OR INFILTRATION. SAFETY MEASURES IN PLACE, BED IN LOW LOCKED POSITION WITH SIDE RAILS X2. CALL LIGHT WITHIN REACH. WILL CONTINUE TO MONITOR.
[2020-01-02 08:00] VITALS: BP 143/80
[2020-01-02] MEDS: LINAGLIPTIN 5 MG TABLET PO SCH (08:20)
[2020-01-02] MEDS: BENAZEPRIL HCL 10 MG TABLET PO SCH (08:20)
[2020-01-02] MEDS: ATORVASTATIN 10 MG TABLET PO SCH (08:20)
[2020-01-02] MEDS: ASPIRIN 81 MG TAB.CHEW PO SCH (09:00)
[2020-01-02] MEDS ORDERED: LACT10SO58 PO (09:45)
[2020-01-02] MEDS ORDERED: POTASSIUM CHLORIDE 20 MEQ TAB.PRT.SR PO SCH (10:00)
--- NOTE | 2020-01-02 13:30 | NUR ---
RN NOTES PATIENT TEMPERATURE 102, COOLING MEASURES APPLIED AND WENT DOWN TO 98. NO SIGNS OF ANY SIGNS OF DISTRESS. INFORMED DR. BARBOUR. ORDERED TO CANCEL DISCHARGE TODAY. REFERRED TO ID, BLOOD CX STILL PENDING. WILL CONTINUE TO MONITOR.
[2020-01-02 16:00] VITALS: BP 148/80
--- NOTE | 2020-01-02 17:10 | NUR ---
RN NOTES PATIENT COMPLAINING OF PAIN ON RIGHT SHOULDER TO RIGHT SCAPULA, ASSESSED THE PATIENT AND NOTED A SWELLING ON RIGHT CHEST, WARM TO TOUCH. INFORMED DR. BARBOUR WITH ORDERS OF CT ON CHEST WITH CONTRAST. CONSENT SIGNED, ORDERS MADE AND CARRIED OUT.
[2020-01-02] MEDS: OSELTAMIVIR PHOSPHATE 75 MG CAPSULE PO SCH (17:46)
[2020-01-02] MEDS: CEFEPIME 1 GM in IV D5W 50 ML IV SCH (18:10)
--- NOTE | 2020-01-02 18:55 | NUR ---
RN CLOSING NOTES PATIENT IN BED RESTING COMFORTABLY IN MODERATE HIGH BACK REST. A/O X3. FAMILY AT BEDSIDE. IV ACCESS IN RAC #18, PATENT AND INTAC. SAFETY MEASURES IN PLACE, BED IN LOW LOCKED POSITION WITH SIDE RAILS X2. CALL LIGHT WITHIN REACH. WILL ENDORSE TO MANAGEMENT PROFESSOR NURSE FOR IZABELA.
--- NOTE | 2020-01-02 19:30 | NUR ---
MS RN OPENING NOTES PATIENT AWAKE AND RESTING IN BED. FAMILY PRESENT AT THE BEDSIDE. A/OX3. ON ROOM AIR. NO S/S OF SOB. PATIENT C/O SLIGHT RIGHT SHOULDER/NECK PAIN RATED 5/10. STATES RELIEF OF PAIN WITH WARM COMPRESS. IV PRESENT ON RIGHT AC, SIZE 18, INTACT & PATENT, HEP LOCKED. BED LOCKED, ALARM ON, SIDE RAILS X2, CALL LIGHT WITHIN REACH. WILL CONTINUE TO MONITOR.
[2020-01-02 20:00] VITALS: BP 136/83
[2020-01-02] MEDS: INSULIN GLARGINE, 100 UNIT/ML CARTRIDGE SQ SCH (21:29)
[2020-01-03] MEDS: LACTULOSE 10 G/15 ML UDC (PYXIS) PO SCH ×3 (05:36→20:25)
[2020-01-03] MEDS: CEFEPIME 1 GM in IV D5W 50 ML IV SCH ×2 (05:50→17:17)
[2020-01-03] MEDS: BLOOD SUGAR DIAGNOSTIC 1 EACH STRIP IN SCH ×4 (07:17→21:17)
--- NOTE | 2020-01-03 07:20 | NUR ---
MS RN CLOSING NOTES PATIENT AWAKE IN BED. DAUGHTER AT THE BEDSIDE. A/OX3. ON ROOM AIR. NO S/S OF SOB OR COMPLAINTS OF PAIN AT THIS TIME. IV PRESENT ON RIGHT AC, SIZE 18, INTACT & PATENT. BED LOCKED, SIDE RAILS X2, CALL LIGHT WITHIN REACH. WILL ENDORSE TO DAY SHIFT NURSE PLAN OF CARE.
[2020-01-03] MEDS: INSULIN REGULAR, HUMAN 100 UNIT/ML 3 ML VIAL SQ PRN ×4 (07:21→21:23)
[2020-01-03 07:22] LABS: CALCIUM, SERUM 8.1 mg/dL (8.5-10.1); CREATININE 0.8 mg/dL (0.6-1.3); POTASSIUM 3.4 mmol/L (3.5-5.1)
--- NOTE | 2020-01-03 07:30 | NUR ---
MS RN OPENING NOTES RECEIVED PT IN BED, AWAKE, A/O X3, GERMAN SPEAKING. PT TOLERATING RA, WITH NO ACUTE RESPIRATORY DISTRESS NOTED. PT DENIES ANY PAIN OR DISCOMFORT AT THIS TIME. ALSO, PT DENIES ANY CONCERNS OR QUESTIONS. PIV TO RAC 18 SL, FLUSHED WITH NS, INTACT AND OPERATIONAL. PT KEPT COMFORTABLE IN BED. PT'S BED IN LOWEST, LOCKED POSITION WITH SR X3. WILL CONTINUE PLAN OF CARE.
--- NOTE | 2020-01-03 07:57 | NUR ---
MS RN NOTES SEEN AND EVALUATED BY DR BARBOUR, SCHEDULED TO HAVE CT OF CHEST WITH CONTRAST TODAY. PER MD PT CAN EAT BREAKFAST. PT AND DAUGHTER AT BEDSIDE AWARE WITH THE PLAN OF CARE.
[2020-01-03 08:00] LABS: MAGNESIUM 1.7 mg/dL (1.8-2.4); PHOSPHORUS 2.6 mg/dL (2.5-4.9)
[2020-01-03 08:11] LABS: BASOPHILS % (AUTO) 0.6 % (0.0-2.0); EOSINOPHILS % (AUTO) 2.2 % (0.0-6.0); HEMATOCRIT 37 % (39-51); HEMOGLOBIN 12.5 g/dL (13.5-17.5); LYMPHOCYTES # (AUTO) 0.7 /CMM (0.8-4.8); LYMPHOCYTES % (AUTO) 12.9 % (20.0-44.0); MEAN CORPUSCULAR HGB CONC 34 g/dl (31.0-36.0); MEAN CORPUSCULAR VOLUME 90 fL (80-96); MONOCYTES # (AUTO) 0.9 /CMM (0.1-1.30); NEUTROPHILS # (AUTO) 3.6 /CMM (1.8-8.9); NEUTROPHILS % (AUTO) 67.3 % (43.0-81.0); RED BLOOD CELL COUNT(AUTO) 4.09 MIL/uL (4.5-6.0); WHITE BLOOD COUNT (AUTO) 5.3 K/uL (4.3-11.0)
[2020-01-03 08:15] VITALS: BP 122/72
[2020-01-03] MEDS: ASPIRIN 81 MG TAB.CHEW PO SCH (08:27)
[2020-01-03] MEDS: ATORVASTATIN 10 MG TABLET PO SCH (08:27)
[2020-01-03] MEDS: LINAGLIPTIN 5 MG TABLET PO SCH (08:27)
[2020-01-03] MEDS: OSELTAMIVIR PHOSPHATE 75 MG CAPSULE PO SCH ×2 (08:27→17:13)
[2020-01-03] MEDS: BENAZEPRIL HCL 10 MG TABLET PO SCH (08:28)
[2020-01-03 08:57] LABS: PLATELET COUNT (AUTO) 42 /CMM (150-450)
[2020-01-03 09:42] LABS: LYMPHOCYTES % (MANUAL) 11 % (16-48); MONOCYTES % (MANUAL) 12 % (0-11.0); NEUTROPHILS % (MANUAL) 77 (42-76)
--- NOTE | 2020-01-03 09:45 | NUR ---
MS RN NOTES MD/KR MADE AWARE OF PLT RESULT OF 42, NO NEW ORDERS NOTED. WILL CONTINUE TO MONITOR.
[2020-01-03] MEDS ORDERED: MAGNESIUM OXIDE 400 MG TABLET PO ONE ×2 (10:00)
[2020-01-03] MEDS ORDERED: IOHEXOL-300 100 ML VIAL IV ONE (10:00)
--- NOTE | 2020-01-03 10:00 | NUR ---
MS RN NOTES PT JUST LEFT FOR CT VIA WHEELCHAIR. DAUGHTER PRESENT IN THE ROOM.
--- NOTE | 2020-01-03 10:22 | NUR ---
MS RN NOTES PT JUST GOT BACK FROM CT. AWAITING FOR RESULTS.
[2020-01-03] MEDS ORDERED: POTASSIUM CHLORIDE 20 MEQ TAB.PRT.SR PO SCH (11:00)
[2020-01-03 16:44] VITALS: BP 138/75
[2020-01-03] MEDS: FLUCONAZOLE (100 MG) 100 MG TABLET PO SCH (18:25)
--- NOTE | 2020-01-03 18:51 | NUR ---
MS RN CLOSING NOTES PT IN BED, AWAKE, A/O X3-4, LATVIAN SPEAKING. PT TOLERATING RA, WITH NO ACUTE RESPIRATORY DISTRESS NOTED. PT DENIES ANY PAIN OR DISCOMFORT AT THIS TIME. PIV TO RAC 18 SL, FLUSHED WITH NS, INTACT AND OPERATIONAL. PT KEPT COMFORTABLE IN BED. ALL NEEDS AND CARE ATTENDED. PT'S BED IN LOWEST, LOCKED POSITION WITH SR X3. WILL ENDORSE TO INCOMING NIGHT NURSE FOR IZABELA.
--- NOTE | 2020-01-03 19:40 | NUR ---
MS/RN OPENING NOTES RECEIVED PATIENT IN BED, AWAKE, ALERT X3, OMANI SPEAKING WITH INVOLVE FAMILY MEMBERS, RESPIRATIONS EVEN AND UNLABORED ON ROOM AIR, SKIN INTACT AND DRY. BED LOCKED, CALL LIGHTS WITHIN REACH. WILL MONITOR. WITH RIGHT SLING ON RIGHT ARM FOR SHOULDER, IV SITE ON RIGHT AC, TO MONITOR BLOOD SUGAR JODEE ANY CHANGES,
[2020-01-03 19:54] VITALS: BP 132/75
[2020-01-03 20:12] VITALS: BP 132/75
[2020-01-03] MEDS: INSULIN GLARGINE, 100 UNIT/ML CARTRIDGE SQ SCH (21:22)
--- NOTE | 2020-01-03 21:32 | NUR ---
MS/RN NOTES BLOOD SUGAR CHECK AT 212. ALERT, ORIENTED X3, FAMILY AT BEDSIDE ADMINISTERED LANTUS SCHEDULED MEDICATION OF 25 UNITS AND SHORT ACTING INSULIN OF 4 UNITS, REQUESTED FOR SOME SNACKS, GAVE CRANBERRY JUICE AND EGG SANDWICH.
[2020-01-04] MEDS: LACTULOSE 10 G/15 ML UDC (PYXIS) PO SCH ×3 (05:20→21:24)
[2020-01-04] MEDS: BLOOD SUGAR DIAGNOSTIC 1 EACH STRIP IN SCH ×4 (06:14→21:26)
--- NOTE | 2020-01-04 06:21 | NUR ---
323-2 MS/RN NOTES PATIENT ABLE TO SLEEP DURING THE NIGHT, ATTENDED TO ALL NEEDS, RESPIRATIONS EVEN AND UNLABORED INROOM AIR, KEPT COMFORTABLE, SAFETY PRECAUTIONS IN PLACED. MINGO ENDORSE TO AM RN FOR IZABELA. BED LOCKED, CALL LIGHTS WITHIN REACH.
[2020-01-04] MEDS: INSULIN REGULAR, HUMAN 100 UNIT/ML 3 ML VIAL SQ PRN ×4 (06:31→21:33)
--- NOTE | 2020-01-04 06:38 | NUR ---
MS/RN NOTES BLOOD SUGAR CHECK AT 148 WITH 2 UNITS GIVEN PATIENT GIVEN SNACKS.
[2020-01-04 07:04] LABS: BASOPHILS % (AUTO) 0.8 % (0.0-2.0); HEMATOCRIT 36 % (39-51); HEMOGLOBIN 12.4 g/dL (13.5-17.5); LYMPHOCYTES # (AUTO) 0.9 /CMM (0.8-4.8); LYMPHOCYTES % (AUTO) 18.7 % (20.0-44.0); MEAN CORPUSCULAR HGB CONC 35 g/dl (31.0-36.0); MEAN CORPUSCULAR VOLUME 89 fL (80-96); MONOCYTES # (AUTO) 0.9 /CMM (0.1-1.30); MONOCYTES % (AUTO) 17.8 % (2.0-12.0); NEUTROPHILS # (AUTO) 2.9 /CMM (1.8-8.9); NEUTROPHILS % (AUTO) 58.7 % (43.0-81.0); RED BLOOD CELL COUNT(AUTO) 4.05 MIL/uL (4.5-6.0)
--- NOTE | 2020-01-04 07:37 | NUR ---
MS RN OPENING NOTES RECEIVED PT IN BED, AWAKE, A/O X3, YORUBA SPEAKING. PT TOLERATING RA, WITH NO ACUTE RESPIRATORY DISTRESS NOTED. PT DENIES ANY PAIN OR DISCOMFORT AT THIS TIME. ALSO, PT DENIES ANY CONCERNS OR QUESTIONS. PT AND DAUGHTER AT BEDSIDE AWARE OF POSSIBLE DISCHARGE TODAY. PIV TO RAC 18 SL, FLUSHED WITH NS, INTACT AND OPERATIONAL. PT KEPT COMFORTABLE IN BED. PT'S BED IN LOWEST, LOCKED POSITION WITH SR X3. WILL CONTINUE PLAN OF CARE.
[2020-01-04 08:00] VITALS: BP 135/77
[2020-01-04 08:14] LABS: CALCIUM, SERUM 8.3 mg/dL (8.5-10.1); CREATININE 0.8 mg/dL (0.6-1.3); MAGNESIUM 1.8 mg/dL (1.8-2.4); PHOSPHORUS 2.9 mg/dL (2.5-4.9); POTASSIUM 3.7 mmol/L (3.5-5.1)
[2020-01-04 08:19] LABS: PLATELET COUNT (AUTO) 44 /CMM (150-450)
[2020-01-04] MEDS: ATORVASTATIN 10 MG TABLET PO SCH (08:28)
[2020-01-04] MEDS: OSELTAMIVIR PHOSPHATE 75 MG CAPSULE PO SCH ×2 (08:28→17:00)
[2020-01-04] MEDS: BENAZEPRIL HCL 10 MG TABLET PO SCH (08:28)
[2020-01-04] MEDS: ASPIRIN 81 MG TAB.CHEW PO SCH (08:28)
[2020-01-04] MEDS: LINAGLIPTIN 5 MG TABLET PO SCH (08:28)
[2020-01-04] MEDS: FLUCONAZOLE (100 MG) 100 MG TABLET PO SCH (08:28)
[2020-01-04 09:08] LABS: EOSINOPHILS % (MANUAL) 2 % (0-4); LYMPHOCYTES % (MANUAL) 14 % (16-48); MONOCYTES % (MANUAL) 19 % (0-11.0); NEUTROPHILS % (MANUAL) 65 (42-76)
[2020-01-04 16:00] VITALS: BP 102/63
--- NOTE | 2020-01-04 19:09 | NUR ---
MS RN CLOSING NOTES PT IN BED, AWAKE, A/O X3, MOHAWK SPEAKING. PT TOLERATING RA, WITH NO ACUTE RESPIRATORY DISTRESS NOTED. PT DENIES ANY PAIN OR DISCOMFORT AT THIS TIME. PIV TO RAC 18 SL, FLUSHED WITH NS, INTACT AND OPERATIONAL. PT KEPT COMFORTABLE IN BED. ALL NEEDS AND CARE ATTENDED. PT'S BED IN LOWEST, LOCKED POSITION WITH SR X3. WILL ENDORSE TO INCOMING NIGHT NURSE FOR IZABELA.
--- NOTE | 2020-01-04 19:30 | NUR ---
MS RN OPENING NOTES BEDSIDE REPORT RECIED FROM CYRUS DIAZ. RECEIVED PT IN BED, AWAKE, A/O X3, BENINESE SPEAKING. FAMILY AT THE BEDSIDE. DR. CHOU AT THE BEDSIDE. FRANK WOOTEN INTERPRETING IN BENINESE. NEW ORDERS FROM DR. CHOU FOR CT ABD PELVISH WITH CONTRAST. DISCUSSED THE TEST WITH PATIENT AND FAMILY. VERBALIZED UNDERSTANDING THAT CONSENT WOULD COME LATER THAT NIGHT TO SIGN. PT TOLERATING RA, WITH NO ACUTE RESPIRATORY DISTRESS NOTED. PT DENIES ANY PAIN OR DISCOMFORT AT THIS TIME. ALSO, PT DENIES ANY CONCERNS OR QUESTIONS. PIV TO RAC 18 SL, FLUSHED WITH NS, INTACTBED IN LOWEST, LOCKED POSITION WITH SR X3. WILL CONTINUE PLAN OF CARE.
[2020-01-04 20:00] VITALS: BP 138/75
[2020-01-04] MEDS ORDERED: ACETYLCYSTEINE 10% 3,000 MG/30 ML VIAL PO PRN (20:00)
--- NOTE | 2020-01-04 21:00 | NUR ---
dr. mays called and clairfied mucomyst prn . davon wants pateint to be scheduled for 4 doeses. order changed to reflect this.
[2020-01-04] MEDS: INSULIN GLARGINE, 100 UNIT/ML CARTRIDGE SQ SCH (21:29)
[2020-01-04] MEDS: ACETYLCYSTEINE 10% 3,000 MG/30 ML VIAL PO SCH (21:58)
--- NOTE | 2020-01-04 22:22 | NUR ---
consent signed for ct abd pelvis with contrast for tomorrow. patient declined for professional transloatr . patient brother freddy at bedside for burmese translation. patient verbalized understanding to drink plenty of fluids after test. and not to take metformin or glucophage for 48 hours after exam.
[2020-01-05] MEDS: LACTULOSE 10 G/15 ML UDC (PYXIS) PO SCH ×2 (06:23→13:00)
[2020-01-05] MEDS: INSULIN REGULAR, HUMAN 100 UNIT/ML 3 ML VIAL SQ PRN ×2 (06:25→12:15)
[2020-01-05] MEDS: BLOOD SUGAR DIAGNOSTIC 1 EACH STRIP IN SCH ×2 (06:25→12:18)
[2020-01-05 07:46] LABS: EOSINOPHILS % (AUTO) 5.9 % (0.0-6.0); HEMATOCRIT 37 % (39-51); HEMOGLOBIN 12.6 g/dL (13.5-17.5); LYMPHOCYTES % (AUTO) 20.8 % (20.0-44.0); MEAN CORPUSCULAR HGB CONC 34 g/dl (31.0-36.0); MEAN CORPUSCULAR VOLUME 89 fL (80-96); MONOCYTES # (AUTO) 0.6 /CMM (0.1-1.30); MONOCYTES % (AUTO) 13.7 % (2.0-12.0); NEUTROPHILS # (AUTO) 2.7 /CMM (1.8-8.9); NEUTROPHILS % (AUTO) 58.6 % (43.0-81.0); PLATELET COUNT (AUTO) 60 /CMM (150-450); RED BLOOD CELL COUNT(AUTO) 4.12 MIL/uL (4.5-6.0); WHITE BLOOD COUNT (AUTO) 4.6 K/uL (4.3-11.0)
--- NOTE | 2020-01-05 07:57 | NUR ---
rn opening notes patient received on room air, no sob noted, denies pain at this time. Patient a/o x4 and speaks rwandan only. R AC 18 patent at this time[address] abdominal with contrast scheduled. Family member bedside the whole time. Bed at the lowest setting, call light within reach, side rails up x2.
[2020-01-05 08:00] VITALS: BP 133/74
[2020-01-05 08:09] LABS: CALCIUM, SERUM 8.1 mg/dL (8.5-10.1); CREATININE 0.8 mg/dL (0.6-1.3); MAGNESIUM 1.6 mg/dL (1.8-2.4); PHOSPHORUS 3.6 mg/dL (2.5-4.9); POTASSIUM 3.4 mmol/L (3.5-5.1)
[2020-01-05] MEDS: LINAGLIPTIN 5 MG TABLET PO SCH ×2 (08:34→08:45)
[2020-01-05] MEDS ORDERED: IOHEXOL-350 100 ML VIAL IV ONE ×2 (08:34→08:35)
[2020-01-05] MEDS ORDERED: IV NS 0.9% 250 ML IV ONE (08:35)
[2020-01-05 08:45] VITALS: BP 133/74
[2020-01-05] MEDS: ASPIRIN 81 MG TAB.CHEW PO SCH (08:45)
[2020-01-05] MEDS: OSELTAMIVIR PHOSPHATE 75 MG CAPSULE PO SCH (08:45)
[2020-01-05] MEDS: FLUCONAZOLE (100 MG) 100 MG TABLET PO SCH (08:45)
[2020-01-05] MEDS: BENAZEPRIL HCL 10 MG TABLET PO SCH (08:45)
[2020-01-05] MEDS: ATORVASTATIN 10 MG TABLET PO SCH (08:46)
[2020-01-05] MEDS ORDERED: FOLIC ACID 1 MG TABLET PO SCH (09:00)
[2020-01-05 09:01] LABS: THYROID STIMULATING HORMONE 3.166 uIU/mL (0.358-3.74)
[2020-01-05 09:13] LABS: EOSINOPHILS % (MANUAL) 5 % (0-4); LYMPHOCYTES % (MANUAL) 16 % (16-48); MONOCYTES % (MANUAL) 18 % (0-11.0); NEUTROPHILS % (MANUAL) 61 (42-76)
[2020-01-05] MEDS: Magnesium 1GM/D5W 100ML PREMIX 100 ML IV SCH ×2 (10:48→12:04)
[2020-01-05] MEDS: ACETYLCYSTEINE 10% 3,000 MG/30 ML VIAL PO SCH (10:48)
[2020-01-05] MEDS ORDERED: POTASSIUM CHLORIDE 20 MEQ TAB.PRT.SR PO SCH (12:00)
[2020-01-05] MEDS ORDERED: OSEL75CA PO (12:37)
[2020-01-05] MEDS ORDERED: FLUC100T8 PO (12:37)
--- NOTE | 2020-01-05 14:52 | NUR ---
rn [facility] notes Patient discharged at this time. Vital signs stable. Patient has all belongings with them. signed paper work, no further questions about the discharge process and new medication prescriptions. Patient has all belongings and nothing is missing. IV line removed with minimal bleeding noted. Patient left with family's private car
[2020-01-07 08:06] LABS: *SPE A/G RATIO 0.6 (0.7-1.7); *SPE ALBUMIN 2.4 g/dL (2.9-4.4); *SPE ALPHA-1-GLOBULIN 0.3 g/dL (0.0-0.4); *SPE ALPHA-2-GLOBULIN 0.7 g/dL (0.4-1.0); *SPE BETA GLOBULIN 1.3 g/dL (0.7-1.3); *SPE GLOBULIN, TOTAL 3.7 g/dL (2.2-3.9); *SPE M-SPIKE Not Observed g/dL (Not Observed); *SPEGAMMA GLOBULIN 1.3 g/dL (0.4-1.8)
[2020-01-08 10:07] LABS: AFP, TUMOR MARKER 1.2 ng/mL (0.0-8.3)
== END 2020-01-05 14:45 | disposition home or self-care (01) | DRG 441 ==
LOC: ER 22:02 → TELE 12-31 00:37 → MED 12-31 08:23 → TELE 01-01 04:00 → MED 01-01 07:57
PROVIDERS: ADMIT Internal Medicine; ATTEND Internal Medicine
DX: K72.90 Hepatic failure, unspecified without coma (principal); E43 Unspecified severe protein-calorie malnutrition; G93.41 Metabolic encephalopathy; I81 Portal vein thrombosis; D61.818 Other pancytopenia; J98.11 Atelectasis; D68.9 Coagulation defect, unspecified; B37.49 Other urogenital candidiasis; I16.0 Hypertensive urgency; E11.9 Type 2 diabetes mellitus without complications; E78.5 Hyperlipidemia, unspecified; I10 Essential (primary) hypertension; K74.60 Unspecified cirrhosis of liver; D69.6 Thrombocytopenia, unspecified; M19.011 Primary osteoarthritis, right shoulder; Z87.891 Personal history of nicotine dependence; Z79.899 Other long term (current) drug therapy; Z79.4 Long term (current) use of insulin; D64.9 Anemia, unspecified; Z79.84 Long term (current) use of oral hypoglycemic drugs; K76.89 Other specified diseases of liver; F10.21 Alcohol dependence, in remission; D73.1 Hypersplenism; I86.8 Varicose veins of other specified sites
CPT/HCPCS: 36415; 70450-TC; 70496-TC; 70498-TC; 71045-TC; 71260-TC; 73030-TC; 80048-TC; 80061-TC; 80076-TC; 80305; 81000-TC; 82105; 82140-TC; 82378; 82728-TC; 82962-TC; 83540-TC; 83605-TC; 83735-TC; 84100-TC; 84155; 84165; 84443-TC; 84484-TC; 85025-TC; 85730-TC; 86301; 86706; 86803; 87040-TC; 87081-TC; 87086-TC; 87340; 92611-TC; 97116-TC; 97530-TC; A4565; G0378; G0480; J0360; J0692; J1815; J2270; J2405; J3475; J3490; J7030; J7050; J7060; Q9967

== ENCOUNTER 2020-04-09 22:06 | Inpatient (IN) | payer MEDICARE, OTHER ==
[~2020-04-09] VITALS: Ht 172.7 cm; Wt 79.4 kg
[~2020-04-09 22:06] MED LIST changes: -ASPI-1169 PO; +FLUC100T8 PO; +LACT10SO58 PO; +OSEL75CA PO
--- NOTE | 2020-04-09 22:27 | NUR ---
BIBFAMILY C/O METAL STATUS CHANGE AND FEVER X1 DAY. PER FAMILY, TEMP 103.2 , NO MEDS GIVEN AFFILIATE MARKETING MANAGER. PT AAOX2, RR EVEN & UNLABORED. DENIES CP, SOB, DIZZINESS, N/V/D @ THIS TIME. AWAITING EVAL BY ERMHunter. WILL CONT TO MONITOR.
[2020-04-09] MEDS ORDERED: CEFTRIAXONE 1GM BAG (ER ONLY) 50 ML IV ONE (22:41)
[2020-04-09] MEDS ORDERED: ACETAMINOPHEN ES 500 MG TABLET ONE (22:42)
[2020-04-09 22:51] LABS: BASOPHILS % (AUTO) 0.7 % (0.0-2.0); EOSINOPHILS % (AUTO) 0.9 % (0.0-6.0); HEMATOCRIT 41 % (39-51); HEMOGLOBIN 13.7 g/dL (13.5-17.5); LYMPHOCYTES # (AUTO) 0.3 /CMM (0.8-4.8); LYMPHOCYTES % (AUTO) 3.9 % (20.0-44.0); MEAN CORPUSCULAR HGB CONC 34 g/dl (31.0-36.0); MEAN CORPUSCULAR VOLUME 95 fL (80-96); MONOCYTES # (AUTO) 0.3 /CMM (0.1-1.30); MONOCYTES % (AUTO) 4.1 % (2.0-12.0); NEUTROPHILS # (AUTO) 6.3 /CMM (1.8-8.9); NEUTROPHILS % (AUTO) 90.4 % (43.0-81.0); WHITE BLOOD COUNT (AUTO) 6.9 K/uL (4.3-11.0)
--- NOTE | 2020-04-09 22:58 | NUR ---
XRAY AT BEDSIDE
[2020-04-09 22:59] LABS: PLATELET COUNT (AUTO) 48 /CMM (150-450)
[2020-04-09 23:00] LABS: SERUM AMMONIA 55 umol/L (11-32)
[2020-04-09] MEDS ORDERED: IV NS 0.9% 1,000 ML BAG IV ONE (23:00)
[2020-04-09] MEDS ORDERED: CEFTRIAXONE 1GM BAG (ER ONLY) 1 GM/50 ML PIGGYBACK IV ONE (23:00)
[2020-04-09] MEDS ORDERED: ACETAMINOPHEN ES 500 MG TABLET PO ONE (23:00)
--- NOTE | 2020-04-09 23:03 | NUR ---
URINE COLLECTED AND SENT TO LAB
--- NOTE | 2020-04-09 23:08 | NUR ---
PT GAVE CONSENT TO INFORM FAMILY MEMBER CLINICAL INFORMATION VIA TELEPHONE FATEMEH (DAUGHTER) CONTACT INFORMATION: [phone] SKYLAR (SON) CONTACT INFORMATION: [phone]
[2020-04-09 23:22] LABS: APPEARANCE,URINE CLEAR (CLEAR); BILIRUBIN,URINE NEGATIVE (NEGATIVE); BLOOD, URINE LARGE Ery/uL (NEGATIVE); COLOR,URINE YELLOW (YELLOW); KETONES,URINE 40 (NEGATIVE); LEUKOCYTE ESTERASE ,URINE NEGATIVE (NEGATIVE); NITRITE, URINE NEGATIVE (NEGATIVE); PROTEIN,URINE NEGATIVE (NEGATIVE); UGLUCOSE >=1000 mg/dL (NEGATIVE)
[2020-04-09] MEDS ORDERED: LACTULOSE 10 G/15 ML UDC (PYXIS) PO ONE (23:30)
[2020-04-09 23:35] LABS: CARBON DIOXIDE 18 mmol/L (21-32); CHLORIDE 100 mmol/L (98-107); CREATININE 0.9 mg/dL (0.6-1.3); GLUCOSE 302 mg/dL (74-106); POTASSIUM 3.8 mmol/L (3.5-5.1); SODIUM SERUM 134 mmol/L (136-145); UREA NITROGEN, BLOOD 18 mg/dL (7-18)
[2020-04-09 23:36] LABS: BAND % (MANUAL) 3 % (0.0-5.0); LYMPHOCYTES % (MANUAL) 4 % (16-48); NEUTROPHILS % (MANUAL) 88 (42-76)
[2020-04-09 23:37] LABS: MONOCYTES % (MANUAL) 5 % (0-11.0)
[2020-04-09 23:37] LABS: BACTERIA,URINE None seen /HPF (None Seen); WBC,URINE 0-2 /HPF (0-3)
[2020-04-09 23:38] LABS: SQUAMOUS EPITHELIAL CELL,UR Few /HPF (None Seen)
[2020-04-09 23:41] LABS: ALANINE AMINOTRANSFERASE 39 U/L (12-78); ALBUMIN 2.5 g/dL (3.4-5.0); ALKALINE PHOSPHATASE 230 U/L (46-116); ASPARTATE AMINOTRANSFERASE 55 U/L (15-37); BILIRUBIN,DIRECT 0.7 mg/dL (0.0-0.2); LIPASE 168 U/L (73-393); TOTAL PROTEIN, SERUM 7.4 g/dL (6.4-8.2)
[2020-04-09] MEDS ORDERED: AZITHROMYCIN 500 MG VIAL ONE (23:41)
[2020-04-10] MEDS ORDERED: AZITHROMYCIN 500 MG in IV D5W 250 ML IV ONE ×2
[2020-04-10] MEDS ORDERED: ACETAMINOPHEN 325 MG TABLET PO PRN (00:30)
[2020-04-10] MEDS ORDERED: MORPHINE SULFATE INJ 2 MG/ML DISP.SYRIN IV PRN (00:30)
[2020-04-10] MEDS ORDERED: ONDANSETRON HCL/PF 4 MG/2 ML VIAL IVP PRN (00:30)
[2020-04-10] MEDS ORDERED: MAG HYDROX/AL HYDROX/SIMETH 30 ML UDC PO PRN (00:30)
[2020-04-10] MEDS ORDERED: HYDROCODONE/APAP 5/325MG 1 EACH TABLET PO PRN (00:30)
[2020-04-10] MEDS ORDERED: DEXTROSE 50%-WATER 50 ML DISP.SYRIN IV PRN (00:30)
[2020-04-10] MEDS ORDERED: MAGNESIUM HYDROXIDE 30 ML UDC PO PRN (00:30)
--- NOTE | 2020-04-10 00:30 | NUR ---
[facility] 104
--- NOTE | 2020-04-10 00:30 | NUR ---
BED ASSIGNMENT 104
--- NOTE | 2020-04-10 00:32 | NUR ---
NURSE WILL CALL BACK FOR REPORT
--- NOTE | 2020-04-10 00:34 | NUR ---
SPOKE W/ PT'S DAUGHTER REGARDING PT'S HOME MEDICATIONS. PER DAUGHTER, SHE DOESNT HAVE ANY ACCESS TO PT'S MEDICATIONS.
[2020-04-10] MEDS ORDERED: METF-440 PO (00:41)
--- NOTE | 2020-04-10 00:41 | NUR ---
REPORT GIVEN TO JOE STEEN FOR IZABELA
[2020-04-10] MEDS ORDERED: BENA5TAB5 PO (00:42)
[2020-04-10] MEDS ORDERED: CELE200C PO (00:43)
[2020-04-10 00:55] VITALS: BP 104/53
--- NOTE | 2020-04-10 01:00 | NUR ---
RN ADMITTING NOTES RECEIVED PT FROM ER VIA LANCE Gutierrez/ECHO 3 LATVIAN SPEAKING VERBAL ABLE TO AMBULATE TO BED WITH ASSISTANCE, V/S CHECKED WITHIN NORMAL RANGE, HOOKED TO TELE MONITOR WITH READING SINUS TACHY 110'S WITH IVF ON LHAND #20 WITH ONGOING ZITHROMAX RUNNING @ 250ML/HR INFUSING WELL NO SIGNS OF INFILTRATION, HEAD TO TOE ASSESSMENT DONE, ADMISSION ASSESSMENT DONE, PUT ON DROPLET ISOLATION TO R/O COVID 19, SAFETY MEASURE INITIATED BED ON LOWEST POSITION AND LOCKED CALL LIGHT WITHIN REACH WILL CONT TO MONITOR
--- NOTE | 2020-04-10 01:05 | NUR ---
PT TRANSFERRED TO ROOM VIA ACLS PROTOCOL
--- NOTE | 2020-04-10 01:41 | NUR ---
0141 REPEAT LACTIC RESULT 2.3 RELAYED TO JUAN DIEGO ESQUIVEL WITH NO NEW ORDER MADE.
[2020-04-10 01:51] LABS: C-REACTIVE PROTEIN 20.3 mg/dL (0.0-0.9)
[2020-04-10] MEDS: IV 1/2NS 1000 ML 1,000 ML IV PRN ×2 (02:02→17:32)
[2020-04-10 04:00] VITALS: BP_SYST 104; BP_SYST 106; BP_DIAS 53; BP_DIAS 64
[2020-04-10 06:22] LABS: BASOPHILS % (AUTO) 0.1 % (0.0-2.0); EOSINOPHILS % (AUTO) 0.2 % (0.0-6.0); HEMATOCRIT 37 % (39-51); HEMOGLOBIN 12.4 g/dL (13.5-17.5); LYMPHOCYTES # (AUTO) 0.5 /CMM (0.8-4.8); LYMPHOCYTES % (AUTO) 4.3 % (20.0-44.0); MEAN CORPUSCULAR HGB CONC 34 g/dl (31.0-36.0); MEAN CORPUSCULAR VOLUME 96 fL (80-96); MONOCYTES # (AUTO) 1.1 /CMM (0.1-1.30); MONOCYTES % (AUTO) 10.4 % (2.0-12.0); NEUTROPHILS # (AUTO) 9.4 /CMM (1.8-8.9); RED BLOOD CELL COUNT(AUTO) 3.83 MIL/uL (4.5-6.0)
[2020-04-10 06:29] LABS: CALCIUM, SERUM 7.5 mg/dL (8.5-10.1); CREATININE 0.9 mg/dL (0.6-1.3); POTASSIUM 4.2 mmol/L (3.5-5.1)
[2020-04-10 06:35] LABS: ALBUMIN 2.1 g/dL (3.4-5.0); BILIRUBIN,TOTAL 1.6 mg/dL (0.2-1.0); MAGNESIUM 1.8 mg/dL (1.8-2.4); PHOSPHORUS 3.5 mg/dL (2.5-4.9); TOTAL PROTEIN, SERUM 6.2 g/dL (6.4-8.2)
[2020-04-10 06:45] LABS: THYROID STIMULATING HORMONE 0.777 uIU/mL (0.358-3.74)
--- NOTE | 2020-04-10 06:49 | NUR ---
RN CLOSING NOTES PT SLEEPING ON BED NO SIGN AND SYMPTOMS OF RESPIRATORY DISTRESS, SPO2 >92% NO COMPLAINT OF PAIN, SO SIGNIFICANT CHANGES ON CONDITION NOTED, DROPLET ISOLATION MAINTAINED FOR R/O COVID 19 KEEP ON TELE MONITOR WITH CURRENT READING SINUS RHYTHM 80'S ALL NEEDS ATTENDED SAFETY MEASURE MAINTAINED, BED ON LOWEST POSITION AND LOCKED CALL LIGHT WIHIN REACHED WILL ENDORSED TO AM SHIFT NURSE
[2020-04-10 06:59] LABS: PLATELET COUNT (AUTO) 43 /CMM (150-450)
--- NOTE | 2020-04-10 07:05 | NUR ---
RN NOTES RECEIVED PT ON BED, A/Ox2-3, ON 2 L O2 N/C , NO SOB NOTED, ON TELE SR HR IN 80'S , 1/2 NS AT 75CC/HR RUNNING VIA L HAND IV SITE G 20 SITE, CLEAN, DRY AND INTACT, SR UP x3, CALL LIGHT WITHIN EASY REACH , BED LOCKED AND IN LOWEST POSITION, CONTINUE TO MONITOR.
[2020-04-10 08:00] VITALS: BP 95/61
[2020-04-10] MEDS: INSULIN REGULAR, HUMAN 100 UNIT/ML 3 ML VIAL SQ PRN ×4 (08:16→22:44)
[2020-04-10] MEDS: BLOOD SUGAR DIAGNOSTIC 1 EACH STRIP IN SCH ×4 (08:17→22:35)
[2020-04-10] MEDS: LINAGLIPTIN 5 MG TABLET PO SCH (08:23)
[2020-04-10] MEDS: LACTULOSE 10 G/15 ML UDC (PYXIS) PO SCH (08:23)
[2020-04-10] MEDS: BENAZEPRIL HCL 20 MG TABLET PO SCH (09:00)
[2020-04-10 10:15] LABS: BAND % (MANUAL) 5 % (0.0-5.0); EOSINOPHILS % (MANUAL) 1 % (0-4); LYMPHOCYTES % (MANUAL) 4 % (16-48); MONOCYTES % (MANUAL) 8 % (0-11.0); NEUTROPHILS % (MANUAL) 82 (42-76)
[2020-04-10 12:00] VITALS: BP 93/61
--- NOTE | 2020-04-10 12:22 | NUR ---
RN NOTES PT STABLE, NO CHANGES NOTED, REPORT GIVEN TO CHRISTOPHE DIAZ FOR CONTINUITY OF CARE .
[2020-04-10 16:00] VITALS: BP 103/68
--- NOTE | 2020-04-10 19:10 | NUR ---
M1A1 TANK CREWMAN NOTES RECEIVED PT IN BED AWAKE AND ABLE TO MAKE NEEDS KNOWN. RESPIRATIONS EVEN AND UNLABORED WITH NO S/S OF ACUTE DISTRESS OR SOB NOTED. PT ON 2L O2 VIA NC SATING 98%. NO COMPLAINTS OF PAIN AT THIS TIME. PT NOTED WITH NESSA #20G PATENT AND INTACT INFUSING 1/2 NS @75CC/HR. SAFETY MEASURES IN PLACE WITH BED IN LOWEST LOCKED POSITION WITH SIDE RAILS UP X2. CALL LIGHT WITHIN REACH. WILL CONTINUE TO MONITOR.
--- NOTE | 2020-04-10 19:15 | NUR ---
television journalist notes Patient in bed, not in acute distress. VS stable. Denies any pain or discomfort. Dinner taken with good appetite. No s/s of pain or discomfort. Cont on IV ATB and fluids. All needs attended. No s/s of hypo/hyperglycemia noted. Safety measures intact. Report given to shift mechanic JOE Coello
[2020-04-10 20:00] VITALS: BP 120/73
[2020-04-10] MEDS ORDERED: ATORVASTATIN 10 MG TABLET PO SCH (22:00)
[2020-04-10] MEDS: CEFTRIAXONE 1 G in IV D5W 50 ML IV SCH (22:36)
[2020-04-10] MEDS: INSULIN GLARGINE, 100 UNIT/ML CARTRIDGE SQ SCH (22:45)
[2020-04-10] MEDS: AZITHROMYCIN 500 MG in IV D5W 250 ML IV SCH (23:49)
[2020-04-11] VITALS: BP 118/72
[2020-04-11 04:00] VITALS: BP 123/71
[2020-04-11 06:14] LABS: BASOPHILS % (AUTO) 0.5 % (0.0-2.0); EOSINOPHILS % (AUTO) 2.5 % (0.0-6.0); HEMATOCRIT 36 % (39-51); HEMOGLOBIN 12.4 g/dL (13.5-17.5); LYMPHOCYTES # (AUTO) 0.7 /CMM (0.8-4.8); LYMPHOCYTES % (AUTO) 9.2 % (20.0-44.0); MEAN CORPUSCULAR HGB CONC 34 g/dl (31.0-36.0); MEAN CORPUSCULAR VOLUME 95 fL (80-96); MONOCYTES # (AUTO) 1.1 /CMM (0.1-1.30); MONOCYTES % (AUTO) 13.9 % (2.0-12.0); NEUTROPHILS # (AUTO) 5.9 /CMM (1.8-8.9); NEUTROPHILS % (AUTO) 73.9 % (43.0-81.0); RED BLOOD CELL COUNT(AUTO) 3.83 MIL/uL (4.5-6.0); WHITE BLOOD COUNT (AUTO) 7.9 K/uL (4.3-11.0)
[2020-04-11 06:26] LABS: PLATELET COUNT (AUTO) 38 /CMM (150-450)
[2020-04-11 06:32] LABS: CALCIUM, SERUM 7.4 mg/dL (8.5-10.1); CREATININE 0.7 mg/dL (0.6-1.3); POTASSIUM 3.6 mmol/L (3.5-5.1)
--- NOTE | 2020-04-11 06:37 | NUR ---
ANTIQUE FURNITURE REPRODUCER NOTES LAB VALUE CRITICAL LOW FOR PLT 38. MADE AWARE. NO NEW ORDERS. WILL CONTINUE TO MONITOR.
[2020-04-11 07:29] LABS: EOSINOPHILS % (MANUAL) 2 % (0-4); LYMPHOCYTES % (MANUAL) 12 % (16-48); MONOCYTES % (MANUAL) 11 % (0-11.0); NEUTROPHILS % (MANUAL) 75 (42-76)
[2020-04-11] MEDS: BLOOD SUGAR DIAGNOSTIC 1 EACH STRIP IN SCH ×4 (07:30→22:17)
--- NOTE | 2020-04-11 07:30 | NUR ---
MS RN RECEIVED ON BED, AWAKE,ALERT,ORIENTED X3,NOT IN ANY FORM OF DISTRESS, RESPIRATIONS EVEN AND UNLABORED,NO SOB NOTED, DENIES PAIN AT THIS TIME, REFUSED BLOOD SUGAR CHECK AT THIS TIME. WANTS TO SLEEP MORE.
--- NOTE | 2020-04-11 07:42 | NUR ---
SURGERY SCHEDULING COORDINATOR NOTES PT IN BED AWAKE AND ABLE TO MAKE NEEDS KNOWN. RESPIRATIONS EVEN AND UNLABORED WITH NO S/S OF ACUTE DISTRESS OR SOB NOTED THROUGHOUT SHIFT. PT ON 2L O2 VIA NC SATING 98%. NO COMPLAINTS OF PAIN AT THIS TIME. PT NOTED WITH NESSA #20G PATENT AND INTACT INFUSING 1/2 NS @75CC/HR. SAFETY MEASURES IN PLACE WITH BED IN LOWEST LOCKED POSITION WITH SIDE RAILS UP X2. CALL LIGHT WITHIN REACH. WILL ENDORSE TO ONCOMING NURSE FOR IZABELA.
[2020-04-11 08:00] VITALS: BP 118/72
[2020-04-11] MEDS: BENAZEPRIL HCL 20 MG TABLET PO SCH (09:00)
[2020-04-11] MEDS: LINAGLIPTIN 5 MG TABLET PO SCH (09:09)
[2020-04-11] MEDS: LACTULOSE 10 G/15 ML UDC (PYXIS) PO SCH (09:09)
--- NOTE | 2020-04-11 09:30 | NUR ---
MS DIAZ BREAKFAST SERVED,DUE MEDS GIVEN. TOLERATED WELL.
--- NOTE | 2020-04-11 10:54 | NUR ---
WOUND CARE CONSULT: PT SEEN FOR RASH ON PENIS, PRESENT ON ADMISSION. RECOMMENDATIONS MADE FOR SKIN CARE AND PROTECTION. DISCUSSED WITH NURSING STAFF. PT IS INDEPENDENT WITH BED MOBILITY AND CONTINENT. CURRENT RAIN SCORE IS 22. WILL SEE PRN. IN AGREEMENT WITH PLAN OF CARE.
[2020-04-11 12:00] VITALS: BP_SYST 121; BP_SYST 124; BP_DIAS 73; BP_DIAS 75
[2020-04-11] MEDS: CLOTRIMAZOLE 1% 15 GM TUBE TP SCH ×2 (12:49→17:35)
[2020-04-11] MEDS: INSULIN REGULAR, HUMAN 100 UNIT/ML 3 ML VIAL SQ PRN ×3 (12:50→22:19)
--- NOTE | 2020-04-11 12:56 | NUR ---
awaits bed from 3w,nursing sup aware.
--- NOTE | 2020-04-11 14:28 | NUR ---
follow-up bed from nursing office,still pending.
[2020-04-11 16:00] VITALS: BP_SYST 109; BP_SYST 121; BP_DIAS 60; BP_DIAS 75
--- NOTE | 2020-04-11 18:00 | NUR ---
MS RN ON BED, TO BE TRANSFERRED LATER TO [facility], NEGRO VIRUS RESULT,NEGATIVE ALREADY.
--- NOTE | 2020-04-11 19:48 | NUR ---
TRAFFIC COORDINATOR NOTES REPORT GIVEN TO SAL DIAZ IN 3W. PT WAS TRANSFERRED VIA WC IN COMPLIANCE WITH FACILITY PROTOCOL. NAD, NO SOB AT THE MOMENT
--- NOTE | 2020-04-11 19:50 | NUR ---
PT TRANSFERED FROM [facility] REPORT RECIEVED FROM ANTHONY RN FROM [facility]. PATIENT TRANSFERRED TO [address] [place] [address] BED 1 VIA WC. PATIENT AXO 3 PERSIAN PAEAKING PRIMARILY. MED SURGE. BREATHING EVEN AND UNLABORED ON 2LNC. VS TO BE TAKEN. PATIENT DENIES PAIN. PATIENT ORIENTED TO ROOM. BED DOWN LOCKED CALL LIGHT WITHIN REACH. BED ALARM ACTIVE. WILL CONT TO MONITOR.
[2020-04-11 20:52] VITALS: BP 132/75
[2020-04-11] MEDS: CEFTRIAXONE 1 G in IV D5W 50 ML IV SCH (22:01)
[2020-04-11] MEDS: INSULIN GLARGINE, 100 UNIT/ML CARTRIDGE SQ SCH (22:23)
[2020-04-11] MEDS: IV 1/2NS 1000 ML 1,000 ML IV PRN (23:16)
[2020-04-11] MEDS: AZITHROMYCIN 500 MG in IV D5W 250 ML IV SCH (23:17)
--- NOTE | 2020-04-11 23:17 | NUR ---
1/2 NS RESTARTED IV AT 75 ML PER HOUR IT IS STILL ORDERD. UPON CHART REVIEW
[2020-04-12] MEDS: BLOOD SUGAR DIAGNOSTIC 1 EACH STRIP IN SCH ×2 (06:28→12:35)
[2020-04-12] MEDS: INSULIN REGULAR, HUMAN 100 UNIT/ML 3 ML VIAL SQ PRN ×2 (06:30→12:42)
--- NOTE | 2020-04-12 07:12 | NUR ---
MS RN OPENING NOTES RECEIVED PT IN BED AWAKE. PT AO X3. ABLE TO MAKE NEEDS KNOWN. RESPIRATIONS EVEN AND UNLABORED WITH NO S/S OF ACUTE DISTRESS OR SOB NOTED. PT ON 2LPM O2 VIA NC. NO C/O PAIN AT THIS TIME. PT NOTED WITH LHAND #20G PATENT AND INTACT INFUSING. BED IN LOWEST LOCKED, SIDE RAILS UP, BED ALARM ON, HOB ELEVATED TO SEMI FOWLERS POSITION, CALL LIGHTS WITHIN REACH. WILL CONTINUE TO MONITOR
[2020-04-12 08:00] VITALS: BP 129/61
[2020-04-12 08:33] LABS: CALCIUM, SERUM 7.6 mg/dL (8.5-10.1); CREATININE 0.5 mg/dL (0.6-1.3); POTASSIUM 3.3 mmol/L (3.5-5.1)
[2020-04-12 08:35] LABS: BASOPHILS # (AUTO) 0.1 /CMM (0.0-0.2); BASOPHILS % (AUTO) 0.8 % (0.0-2.0); EOSINOPHILS % (AUTO) 3.7 % (0.0-6.0); HEMATOCRIT 35 % (39-51); LYMPHOCYTES # (AUTO) 0.9 /CMM (0.8-4.8); LYMPHOCYTES % (AUTO) 14.9 % (20.0-44.0); MEAN CORPUSCULAR HGB CONC 35 g/dl (31.0-36.0); MEAN CORPUSCULAR VOLUME 94 fL (80-96); MONOCYTES # (AUTO) 0.8 /CMM (0.1-1.30); MONOCYTES % (AUTO) 12.8 % (2.0-12.0); NEUTROPHILS # (AUTO) 4.3 /CMM (1.8-8.9); NEUTROPHILS % (AUTO) 67.8 % (43.0-81.0); RED BLOOD CELL COUNT(AUTO) 3.69 MIL/uL (4.5-6.0); WHITE BLOOD COUNT (AUTO) 6.3 K/uL (4.3-11.0)
[2020-04-12 09:16] LABS: PLATELET COUNT (AUTO) 46 /CMM (150-450)
--- NOTE | 2020-04-12 09:18 | NUR ---
RECEIVED CALL [employer] DUE TO PATIENT PLATELET COUNT CRITICAL LAB VALUE OF 46. DOCTOR YONAS WAS MADE AWARE. WILL CONTINUE TO MONITOR
[2020-04-12] MEDS: LACTULOSE 10 G/15 ML UDC (PYXIS) PO SCH (09:32)
[2020-04-12 09:33] VITALS: BP 129/61
[2020-04-12] MEDS: CLOTRIMAZOLE 1% 15 GM TUBE TP SCH (09:33)
[2020-04-12] MEDS: LINAGLIPTIN 5 MG TABLET PO SCH (09:33)
[2020-04-12] MEDS: BENAZEPRIL HCL 20 MG TABLET PO SCH (09:33)
[2020-04-12] MEDS ORDERED: POTASSIUM CHLORIDE 20 MEQ TAB.PRT.SR PO SCH (10:30)
--- NOTE | 2020-04-12 13:15 | NUR ---
MS NON EMERGENCY SERVICES AMBULANCE DRIVER NOTES: PT DISCHARGE HOME AT THIS TIME. PT IS STABLE, VS STABLE, NO COMPLAIN OF PAIN, NO SOB. IV ACCESS REMOVED, NO BLEEDING NOTED, IV SITE CLEAN AND DRESSED. PT CARE PROVIDED PER ORDER. PT DISCHARGE INSTRUCTIONS PROVIDED AND PT VERBALIZED UNDERSTANDING. PICTURE TAKEN AND FILED. ALL BELONGINGS ACCOUNTED FOR. PT ACCOMPANIED TO LOBBY BY SUGAR BEAULIEU BY WHEEL CHAIR. PT PICKED UP BY DAUGHTER, ANNE-MARIE.
== END 2020-04-12 13:30 | disposition home or self-care (01) | DRG 441 ==
LOC: ER 22:08 → TELE1 04-10 00:35 → MEDSG1 04-11 11:33 → MED 04-11 19:52
PROVIDERS: ADMIT Internal Medicine; ATTEND Family Medicine
DX: K72.90 Hepatic failure, unspecified without coma (principal); J96.01 Acute respiratory failure with hypoxia; I81 Portal vein thrombosis; G93.41 Metabolic encephalopathy; E43 Unspecified severe protein-calorie malnutrition; E87.2 Acidosis; K76.6 Portal hypertension; R18.8 Other ascites; B37.49 Other urogenital candidiasis; I10 Essential (primary) hypertension; Z79.4 Long term (current) use of insulin; E78.5 Hyperlipidemia, unspecified; D64.9 Anemia, unspecified; R42 Dizziness and giddiness; Z79.84 Long term (current) use of oral hypoglycemic drugs; Z79.899 Other long term (current) drug therapy; M19.011 Primary osteoarthritis, right shoulder; K74.60 Unspecified cirrhosis of liver; E11.65 Type 2 diabetes mellitus with hyperglycemia; D69.6 Thrombocytopenia, unspecified; K21.9 Gastro-esophageal reflux disease without esophagitis; I35.0 Nonrheumatic aortic (valve) stenosis; D73.1 Hypersplenism; Z87.891 Personal history of nicotine dependence
CPT/HCPCS: 36415; 71045-TC; 76705-TC; 80048-TC; 80053-TC; 80061-TC; 80076-TC; 81000-TC; 82140-TC; 82550-TC; 82728-TC; 82962-TC; 83605-TC; 83615-TC; 83690-TC; 83735-TC; 83880; 84100-TC; 84443-TC; 84484-TC; 85025-TC; 85378-TC; 85730-TC; 86140-TC; 87081-TC; 87086-TC; G0378; J0456; J0696; J1815; J3490; J7030; J7050; J7060

== ENCOUNTER 2022-10-09 10:09 | Inpatient (IN) | payer MEDICARE, OTHER ==
[~2022-10-09] VITALS: Ht 172.7 cm; Wt 81.6 kg
[~2022-10-09 10:09] MED LIST changes: +BENA5TAB5 PO; +CELE200C PO
--- NOTE | 2022-10-09 10:46 | NUR ---
urine collected and sent to lab.
[2022-10-09 10:57] LABS: BASOPHILS % (AUTO) 0.9 % (0.0-2.0); EOSINOPHILS % (AUTO) 4.7 % (0.0-6.0); HEMATOCRIT 39 % (39-51); HEMOGLOBIN 13.1 g/dL (13.5-17.5); LYMPHOCYTES # (AUTO) 0.9 K/uL (0.8-4.8); LYMPHOCYTES % (AUTO) 16.2 % (20.0-44.0); MEAN CORPUSCULAR HGB CONC 33 g/dl (31.0-36.0); MEAN CORPUSCULAR VOLUME 96 fL (80-96); MONOCYTES # (AUTO) 0.6 K/uL (0.1-1.30); MONOCYTES % (AUTO) 11.2 % (2.0-12.0); NEUTROPHILS # (AUTO) 3.6 K/uL (1.8-8.9); PLATELET COUNT (AUTO) 84 K/uL (150-450); RED BLOOD CELL COUNT(AUTO) 4.11 MIL/uL (4.5-6.0); WHITE BLOOD COUNT (AUTO) 5.4 K/uL (4.3-11.0)
--- NOTE | 2022-10-09 11:00 | NUR ---
BIB FAMILY FOR ABDOMINAL PAIN/DISTENSION X 8 DAYS. AMBULATORY, PLACED ON BED, IN PAIN 06/02.
--- NOTE | 2022-10-09 11:01 | NUR ---
Tani urbina in [facility] - 10/09/22 at 1207 by RAJ OUTDOOR FITNESS TRAINER AT BEDSIDE
[2022-10-09 11:05] LABS: BILIRUBIN,URINE NEGATIVE (NEGATIVE); COLOR,URINE DARK YELLOW (YELLOW); LEUKOCYTE ESTERASE ,URINE NEGATIVE (NEGATIVE); NITRITE, URINE NEGATIVE (NEGATIVE); PROTEIN,URINE NEGATIVE (NEGATIVE); UGLUCOSE 3+ mg/dL (NEGATIVE)
[2022-10-09 11:10] LABS: ALANINE AMINOTRANSFERASE 31 U/L (12-78); ALBUMIN 2.7 g/dL (3.4-5.0); ALKALINE PHOSPHATASE 138 U/L (46-116); ASPARTATE AMINOTRANSFERASE 26 U/L (15-37); BILIRUBIN,DIRECT 0.4 mg/dL (0.0-0.2); BILIRUBIN,TOTAL 1.5 mg/dL (0.2-1.0); CALCIUM, SERUM 8.8 mg/dL (8.5-10.1); CARBON DIOXIDE 25 mmol/L (21-32); CHLORIDE 107 mmol/L (98-107); CREATININE 0.9 mg/dL (0.6-1.3); GLUCOSE 98 mg/dL (74-106); LIPASE 202 U/L (73-393); POTASSIUM 4.2 mmol/L (3.5-5.1); SODIUM SERUM 143 mmol/L (136-145); TOTAL PROTEIN, SERUM 7.4 g/dL (6.4-8.2); UREA NITROGEN, BLOOD 16 mg/dL (7-18)
--- NOTE | 2022-10-09 11:10 | NUR ---
PATIENT TAKEN TO CT VIA LANCE
[2022-10-09 11:26] LABS: BACTERIA,URINE None seen /HPF (None Seen); RBC,URINE 0-2 /HPF (0-2); SQUAMOUS EPITHELIAL CELL,UR Few /HPF (None Seen); WBC,URINE 0-2 /HPF (0-3)
--- NOTE | 2022-10-09 12:02 | NUR ---
SWAB FOR COVID19 SENT TO LAB
[2022-10-09] MEDS ORDERED: TAMS-12 PO (12:03)
[2022-10-09] MEDS ORDERED: LOSA25TA27 PO (12:03)
[2022-10-09] MEDS ORDERED: GLIP10TA11 PO (12:03)
[2022-10-09] MEDS ORDERED: DONE10TA44 PO (12:03)
[2022-10-09] MEDS ORDERED: SPIR25TA6 PO (12:03)
[2022-10-09] MEDS ORDERED: DAPA10TA PO (12:03)
[2022-10-09] MEDS ORDERED: SEMA1PEN SQ (12:09)
[2022-10-09] MEDS ORDERED: INSU100I4 SQ (12:09)
[2022-10-09] MEDS ORDERED: INSU100I26 SQ (12:09)
[2022-10-09] MEDS ORDERED: ASPIRIN 325 MG TABLET ONE (12:28)
[2022-10-09] MEDS ORDERED: ASPIRIN 325 MG TABLET PO ONE (12:30)
--- NOTE | 2022-10-09 15:09 | NUR ---
GOT BED ASSIGNMENT 321-2
--- NOTE | 2022-10-09 15:12 | NUR ---
REPORT GIVEN TO KRISTINA DIAZ ROOM 321-2 FOR IZABELA
[2022-10-09] MEDS ORDERED: FUROSEMIDE 40 MG/4 ML VIAL IV SCH (15:30)
[2022-10-09] MEDS ORDERED: MAG HYDROX/AL HYDROX/SIMETH 30 ML UDC PO PRN (15:30)
[2022-10-09] MEDS ORDERED: ACETAMINOPHEN 325 MG TABLET PO PRN (15:30)
[2022-10-09] MEDS ORDERED: Z GUARD REMEDY 4 OZ OINT TP PRN (15:30)
[2022-10-09] MEDS ORDERED: MAGNESIUM HYDROXIDE 30 ML UDC PO PRN (15:30)
[2022-10-09] MEDS ORDERED: DEXTROSE 50%-WATER 50 ML DISP.SYRIN IV PRN (15:30)
[2022-10-09] MEDS ORDERED: ONDANSETRON HCL/PF 4 MG/2 ML VIAL IVP PRN (15:30)
[2022-10-09] MEDS: BLOOD SUGAR DIAGNOSTIC 1 EACH STRIP VI SCH ×2 (17:40→22:12)
[2022-10-09] MEDS: PROPRANOLOL HCL 40 MG TABLET PO SCH ×2 (17:46→20:49)
--- NOTE | 2022-10-09 19:42 | NUR ---
NURSERY TECHNICIAN CLOSING NOTE PATIENT ADMITTED TO UNIT @ 1615. REPORT GIVEN BY ZOYA MCDANIEL NURSE. PATIENT OBSERVED AMBULATING FROM GURNEY TO BED WITH MINIMAL ASSIST.TELE MONITOR PLACED ON PATIENT. IV ACCESS TO LAC INTACT AND PATENT. PATIENT DENIED PAIN UPON ADMISSION AND DURING ADMISSION PROCESS. NO RESPIRATORY DISTRESS OBSERVED OR REPORTED. NO SOB. VS SIGNS STABLE 125/67 74 18 96% RA. BLOOD SUGAR STABLE @ 143. PATIENT A/OX4 SPANINSH SPEAKING AND ABLE TO VERBALIZE NEEDS. TOLERATED DINNER AND MEDICATIONS WELL. SAFETY MEASURES INTACT WITH BED LOW AND LOCKED. CALL LIGHT WITHIN REACH. WILL CONT TO MONITOR
--- NOTE | 2022-10-09 19:55 | NUR ---
MOTOR GRADER ROUGH GRADE OPENING NOTE PATIENT AWAKE IN BED WITH FAMILY AT BEDSIDE, ALERT/ORIENTED X 3, PT ABLE TO MAKE NEEDS KNOWN. PATIENT DENIES CHEST PAIN. PATIENT C/O ABDOMINAL DISTENTION WITH SOME PAIN, NO DIARRHEA OR NAUSEA PER PATIENT. PT STABLE ON RA, NO S/S OF DISTRESS OR SOB NOTED, BREATHING EVEN AND UNLABORED. IV ACCESS ON LAC #18G INTACT AND SALINE LOCKED. PATIENT ON EXTERNAL SIGN WIRER READING SINUS RHYTHM, HR: 74. SAFETY MEASURES IN PLACE: CALL LIGHT WITHIN REACH, SIDE RAILS UP X 2, BED LOCKED IN LOWEST POSITION, BED ALARM ON. WILL CONTINUE TO MONITOR PATIENT
[2022-10-09 20:00] VITALS: BP 93/63
[2022-10-09 20:03] LABS: EOSINOPHILS % (MANUAL) 4 % (0-4); LYMPHOCYTES % (MANUAL) 16 % (16-48); MONOCYTES % (MANUAL) 12 % (0-11.0); NEUTROPHILS % (MANUAL) 68 (42-76)
--- NOTE | 2022-10-09 20:58 | NUR ---
SUPERINTENDENT QUARRY NOTE HELD INDERAL 40 MG PO, MEDICATION ORDER TO BE GIVEN Q12H AND WAS LAST GIVEN AT 1746 ON ADMISSION. PATIENT'S BP 93/63, HR: 70. WILL CONTINUE TO MONITOR
[2022-10-09] MEDS: INSULIN GLARGINE, 100 UNIT/ML CARTRIDGE SQ SCH (22:14)
[2022-10-09] MEDS: *INSULIN REGULAR(HUMULIN R)HUM 100 UNIT/ML VIAL SQ PRN (22:15)
[2022-10-10] VITALS: BP 100/57
[2022-10-10 04:00] VITALS: BP 122/67
[2022-10-10 06:42] LABS: BASOPHILS # (AUTO) 0.1 K/uL (0.0-0.2); BASOPHILS % (AUTO) 1.1 % (0.0-2.0); EOSINOPHILS % (AUTO) 5.5 % (0.0-6.0); HEMATOCRIT 32 % (39-51); HEMOGLOBIN 11.3 g/dL (13.5-17.5); LYMPHOCYTES % (AUTO) 20.9 % (20.0-44.0); MEAN CORPUSCULAR HGB CONC 35 g/dl (31.0-36.0); MEAN CORPUSCULAR VOLUME 94 fL (80-96); MONOCYTES # (AUTO) 0.5 K/uL (0.1-1.30); MONOCYTES % (AUTO) 11.8 % (2.0-12.0); NEUTROPHILS # (AUTO) 2.8 K/uL (1.8-8.9); NEUTROPHILS % (AUTO) 60.7 % (43.0-81.0); PLATELET COUNT (AUTO) 76 K/uL (150-450); RED BLOOD CELL COUNT(AUTO) 3.44 MIL/uL (4.5-6.0); WHITE BLOOD COUNT (AUTO) 4.6 K/uL (4.3-11.0)
[2022-10-10] MEDS: INSULIN REGULAR, HUMAN 100 UNIT/ML 3 ML VIAL SQ PRN ×3 (06:58→18:14)
[2022-10-10] MEDS: BLOOD SUGAR DIAGNOSTIC 1 EACH STRIP VI SCH ×4 (06:58→22:23)
--- NOTE | 2022-10-10 07:05 | NUR ---
COMMUNITY HEALTH OUTREACH WORKER CLOSING NOTE PATIENT AWAKE IN BED, ALERT/ORIENTED X 3, PT ABLE TO MAKE NEEDS KNOWN. PATIENT DENIED CHEST PAIN ALL SHIFT. PT STABLE ON RA, NO S/S OF DISTRESS OR SOB NOTED, BREATHING EVEN AND UNLABORED. IV ACCESS ON LAC #18G INTACT AND SALINE LOCKED. PATIENT ON EXTERNAL LEASE OPERATOR READING SINUS RHYTHM, HR: 71. MEDICATIONS GIVEN ORDERED, PT NEEDS MET THROUGHOUT SHIFT. SAFETY MEASURES IN PLACE: CALL LIGHT WITHIN REACH, SIDE RAILS UP X 2, BED LOCKED IN LOWEST POSITION, BED ALARM ON. ENDORSED TO DAY SHIFT RN FOR CONTINUITY OF CARE
--- NOTE | 2022-10-10 07:15 | NUR ---
ms rn received on bed, awake,alert,oriented x3,not in any form of distress,respirations even and unlabored.no sob noted, lungs are diminished,abdomen soft,positive bowel sounds,denies pain at this time,repositioned for comfort.all needs attended.
[2022-10-10] MEDS ORDERED: LACTULOSE 10 G/15 ML UDC (PYXIS) PO PRN (07:30)
--- NOTE | 2022-10-10 07:30 | NUR ---
ms rn was seen by dr. efren kirkland/ orders made and carried out.
[2022-10-10 07:39] LABS: CARBON DIOXIDE 22 mmol/L (21-32); CHLORIDE 110 mmol/L (98-107); CREATININE 0.6 mg/dL (0.6-1.3); GLUCOSE 93 mg/dL (74-106); MAGNESIUM 1.7 mg/dL (1.8-2.4); PHOSPHORUS 3.3 mg/dL (2.5-4.9); POTASSIUM 4.1 mmol/L (3.5-5.1); SODIUM SERUM 139 mmol/L (136-145); UREA NITROGEN, BLOOD 16 mg/dL (7-18)
[2022-10-10 08:25] VITALS: BP 123/64
[2022-10-10] MEDS: SPIRONOLACTONE 25 MG TABLET PO SCH (09:10)
[2022-10-10] MEDS: ASPIRIN 81 MG TAB.CHEW PO SCH (09:10)
[2022-10-10] MEDS: PANTOPRAZOLE 40 MG TABLET.DR PO SCH (09:11)
[2022-10-10] MEDS: TAMSULOSIN 0.4 MG CAP.SR.24H PO SCH (09:11)
[2022-10-10] MEDS: PROPRANOLOL HCL 10 MG TABLET PO SCH ×2 (09:11→20:55)
[2022-10-10] MEDS: DONEPEZIL 5 MG TABLET PO SCH (09:12)
[2022-10-10] MEDS: LOSARTAN POTASSIUM 25 MG TABLET PO SCH (09:12)
--- NOTE | 2022-10-10 09:20 | NUR ---
ms witt breakfast served.due meds given all needs attended.
[2022-10-10] MEDS ORDERED: Magnesium 1GM/D5W 100ML PREMIX 100 ML IV SCH (11:00)
[2022-10-10] MEDS ORDERED: MAGNESIUM OXIDE 400 MG TABLET PO ONE (11:00)
[2022-10-10 11:56] VITALS: BP 97/58
--- NOTE | 2022-10-10 14:00 | NUR ---
ms internal controls consultant not done,all needs attended.
[2022-10-10 15:42] LABS: EOSINOPHILS % (MANUAL) 5 % (0-4); LYMPHOCYTES % (MANUAL) 20 % (16-48); MONOCYTES % (MANUAL) 15 % (0-11.0); NEUTROPHILS % (MANUAL) 60 (42-76)
[2022-10-10 16:16] VITALS: BP 92/54
--- NOTE | 2022-10-10 18:52 | NUR ---
ms rn on bed,no distress noted,all needs attended.
--- NOTE | 2022-10-10 20:18 | NUR ---
MUD ENGINEER OPENING NOTE PATIENT AWAKE IN BED, ALERT/ORIENTED X 3, PT DANISH SPEAKING, ABLE TO MAKE NEEDS KNOWN. PATIENT DENIES CHEST PAIN. PT STABLE ON RA, NO S/S OF DISTRESS OR SOB NOTED, BREATHING EVEN AND UNLABORED. IV ACCESS ON LAC #18G INTACT AND SALINE LOCKED. PATIENT ON EXTERNAL MULESER READING SINUS RHYTHM, HR: 70. CONSENT FOR CT ANGIO SIGNED BY PATIENT. SAFETY MEASURES IN PLACE: CALL LIGHT WITHIN REACH, SIDE RAILS UP X 2, BED LOCKED IN LOWEST POSITION, BED ALARM ON. WILL CONTINUE TO MONITOR PATIENT
[2022-10-10 20:35] VITALS: BP 110/55
[2022-10-10] MEDS: INSULIN GLARGINE, 100 UNIT/ML CARTRIDGE SQ SCH (22:25)
[2022-10-10] MEDS: *INSULIN REGULAR(HUMULIN R)HUM 100 UNIT/ML VIAL SQ PRN (22:27)
[2022-10-11 00:16] VITALS: BP 139/59
--- NOTE | 2022-10-11 03:19 | NUR ---
LAW OFFICE MANAGER NOTE PATIENT NOTED VERY CONFUSED, NOW ONLY ALERT TO NAME. PATIENT ATTEMPTING TO GET OUT OF BED, UNSTEADY GAIT. BLOOD SUGAR CHECKED = 70. PATIENT GIVEN APPLE SAUCE AND ORANGE JUICE. STAT [facility] LAB ORDER PLACED. PATIENT PLACED ON BILATERAL SOFT WRIST RESTRAINTS FOR SAFETY. WILL CONTINUE TO MONITOR PATIENT
--- NOTE | 2022-10-11 04:00 | NUR ---
SENIOR SOUS CHEF NOTE STAT SERUM AMMONIA = 166. LACTULOSE 20 G GIVEN ORDERED. WILL CONTINUE TO MONITOR PATIENT
--- NOTE | 2022-10-11 04:18 | NUR ---
DIRECT CARE WORKER NOTE PATIENT'S BP 187/94, HOWEVER, PT AGITATED AND ATTEMPTING TO GET OUT OF RESTRAINTS. WILL REASSESS WHEN PATIENT IS MORE CALM
[2022-10-11 04:19] VITALS: BP 187/94
[2022-10-11 05:00] VITALS: BP 145/81
[2022-10-11 06:44] LABS: BASOPHILS # (AUTO) 0.1 K/uL (0.0-0.2); EOSINOPHILS % (AUTO) 2.8 % (0.0-6.0); HEMATOCRIT 38 % (39-51); HEMOGLOBIN 13.1 g/dL (13.5-17.5); LYMPHOCYTES # (AUTO) 0.9 K/uL (0.8-4.8); LYMPHOCYTES % (AUTO) 15.5 % (20.0-44.0); MEAN CORPUSCULAR HGB CONC 35 g/dl (31.0-36.0); MEAN CORPUSCULAR VOLUME 93 fL (80-96); MONOCYTES # (AUTO) 0.6 K/uL (0.1-1.30); MONOCYTES % (AUTO) 10.2 % (2.0-12.0); NEUTROPHILS # (AUTO) 4.2 K/uL (1.8-8.9); NEUTROPHILS % (AUTO) 70.5 % (43.0-81.0); PLATELET COUNT (AUTO) 82 K/uL (150-450); RED BLOOD CELL COUNT(AUTO) 4.08 MIL/uL (4.5-6.0)
[2022-10-11] MEDS: INSULIN REGULAR, HUMAN 100 UNIT/ML 3 ML VIAL SQ PRN ×3 (06:48→17:42)
[2022-10-11] MEDS: BLOOD SUGAR DIAGNOSTIC 1 EACH STRIP VI SCH ×3 (06:49→17:40)
[2022-10-11 06:50] LABS: CALCIUM, SERUM 8.6 mg/dL (8.5-10.1); CREATININE 0.7 mg/dL (0.6-1.3); MAGNESIUM 2.4 mg/dL (1.8-2.4); POTASSIUM 4.1 mmol/L (3.5-5.1)
--- NOTE | 2022-10-11 07:02 | NUR ---
ORTHOPHOTO TECH/DRAFTSMAN CLOSING NOTE PATIENT AWAKE IN BED, PT REMAINS ALERT TO NAME ONLY, VERY CONFUSED. PATIENT STABLE ON RA, NO S/S OF DISTRESS OR SOB NOTED, BREATHING EVEN AND UNLABORED. PATIENT ON BILATERAL SOFT WRIST RESTRAINTS FOR SAFETY, PT ATTEMPTING TO GET OUT OF BED AND PT HAS UNSTEADY GAIT. PT ON EXTERNAL TELECASTING ENGINEER READING SINUS RHYTHM, HR: 66. MEDICATIONS GIVEN ORDERED, PT NEEDS MET THROUGHOUT SHIFT. SAFETY MEASURES IN PLACE: CALL LIGHT WITHIN REACH, SIDE RAILS UP X 3, BED LOCKED IN LOWEST POSITION, BED ALARM ON. WILL ENDORSE TO DAYSHIFT RN FOR CONTINUITY OF CARE
--- NOTE | 2022-10-11 08:10 | NUR ---
ms rn received on bed. awakelaert,oriented x3,not in any form of distress, respirations even and unlabored. no sob noted lungs are diminished,a bdomen soft,postive bowel sounds, denies pain at this time,all needs attended, denies pain at this time,all needs attended,.
--- NOTE | 2022-10-11 08:30 | NUR ---
ms rn patient is more alert now, restraints discontinued, all needs attended.
[2022-10-11 08:36] VITALS: BP 174/78
[2022-10-11] MEDS: PROPRANOLOL HCL 10 MG TABLET PO SCH ×3 (09:30→17:40)
[2022-10-11] MEDS ORDERED: LACTULOSE 10 G/15 ML UDC (PYXIS) PO PRN (09:30)
--- NOTE | 2022-10-11 09:30 | NUR ---
ms rn npo at this time, patient will have ct angio today.
[2022-10-11] MEDS ORDERED: NIFEdipine XL (30MG) 30 MG TAB PO SCH (10:00)
[2022-10-11] MEDS ORDERED: NIFE-35 PO (10:04)
[2022-10-11] MEDS ORDERED: NITROGLYCERIN 0.4 MG/TAB BOTTLE ONE (10:22)
[2022-10-11] MEDS ORDERED: IOHEXOL-350 100 ML VIAL IV ONE ×2 (10:22→11:37)
[2022-10-11] MEDS ORDERED: CT SWABBABLE VALVE TRANS SET 1 EA INFUS.SET MC ONE (10:23)
[2022-10-11] MEDS ORDERED: METOPROLOL TARTRATE INJ 5 MG/5 ML AMPUL ONE ×3 (10:23→11:08)
[2022-10-11] MEDS ORDERED: IV NS 0.9% 250 ML IV ONE (10:24)
[2022-10-11] MEDS: METOPROLOL TARTRATE INJ 5 MG/5 ML AMPUL IVP PRN ×10 (10:30→11:15)
[2022-10-11] MEDS ORDERED: NITROGLYCERIN 0.4 MG/TAB BOTTLE SL ONE (11:00)
--- NOTE | 2022-10-11 12:00 | NUR ---
ms rn patient came back from procedure,all needs attended.
[2022-10-11 13:45] LABS: EOSINOPHILS % (MANUAL) 6 % (0-4); LYMPHOCYTES % (MANUAL) 11 % (16-48); MONOCYTES % (MANUAL) 11 % (0-11.0); NEUTROPHILS % (MANUAL) 72 (42-76)
[2022-10-11] MEDS: TAMSULOSIN 0.4 MG CAP.SR.24H PO SCH (14:21)
[2022-10-11] MEDS: DONEPEZIL 5 MG TABLET PO SCH (14:22)
[2022-10-11] MEDS: ASPIRIN 81 MG TAB.CHEW PO SCH (14:22)
[2022-10-11] MEDS: SPIRONOLACTONE 25 MG TABLET PO SCH (14:26)
[2022-10-11] MEDS: LOSARTAN POTASSIUM 25 MG TABLET PO SCH (14:39)
[2022-10-11] MEDS: PANTOPRAZOLE 40 MG TABLET.DR PO SCH (14:45)
--- NOTE | 2022-10-11 15:00 | NUR ---
ms rn texted dr. schwartz for ct angio result.
[2022-10-11 15:46] VITALS: BP 120/63
[2022-10-11 17:40] VITALS: BP 120/63
--- NOTE | 2022-10-11 18:00 | NUR ---
ms eduar chavez ordered ok to go home today, all needs attended, ready for d/c ,instructions given to daughter.
--- NOTE | 2022-10-11 19:10 | NUR ---
RN NOTES: RECEIVED ENDORSEMENT FROM AM SHIFT THIS PATIENT IS FOR DISCHARGE HOME, DISCHARGE INSTRUCTION WAS ALREADY COMPLETED AND SIGNED, INSTRUCTION WAS ALREADY GIVEN BY MORNING SHIFT, ALL BELONGINGS WERE ALREADY CHECK AND SIGNED; MEDICATION INSTRUCTION GIVEN PER ENDORSEMENT.
--- NOTE | 2022-10-11 19:45 | NUR ---
RN NOTES: FAMILY WANTS TO TAKE HIM HOME NOW, IV CANNULA ON THE LAC TAKEN, NO BLEEDING, COOPERATIVE, V/S WITHIN RANGE, SKIN IS CLEAR, ACCOMPANIED BY CARDIOPULMONARY TECHNICIAN AND EEG TECH TO GO DOWN, DISCHARGE AT 1945PM WITH MEDICATION, BELONGINGS AND COMPLETE PAPER WORKS.
== END 2022-10-11 20:14 | disposition home or self-care (01) | DRG 432 ==
LOC: ER 10:20 → TELE 15:33
PROVIDERS: ADMIT Internal Medicine; ATTEND Internal Medicine
DX: K74.60 Unspecified cirrhosis of liver (principal); I21.A1 Myocardial infarction type 2; K76.6 Portal hypertension; R18.8 Other ascites; D61.818 Other pancytopenia; E11.9 Type 2 diabetes mellitus without complications; I10 Essential (primary) hypertension; E78.5 Hyperlipidemia, unspecified; D64.9 Anemia, unspecified; Z79.4 Long term (current) use of insulin; Z79.84 Long term (current) use of oral hypoglycemic drugs; Z79.899 Other long term (current) drug therapy; N40.0 Benign prostatic hyperplasia without lower urinary tract symptoms; R16.1 Splenomegaly, not elsewhere classified; D13.4 Benign neoplasm of liver
CPT/HCPCS: 36415; 71045-TC; 75574; 76705-TC; 80048-TC; 80076-TC; 81001; 82140-TC; 82962-TC; 83690-TC; 83735-TC; 84100-TC; 84484-TC; 85025-TC; 85610-TC; 87081-TC; 93307-TC; C9803; G0378; J1815; J1940; J3490; J7050; Q9967